=== PATIENT | male | born 1965 | race Two or more races ===

== ENCOUNTER 2018-06-25 18:48 | Inpatient (IN) | payer MEDICARE, OTHER ==
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
[2018-06-25 19:44] LABS: % BASOPHILS 0.3 % (0.0-2.0); % EOSINOPHILS 1.7 % (0.0-5.0); % MONOCYTES 7.3 % (2.0-10.0); % NEUTROPHILS 63.7 % (40.0-80.0); EOSINOPHILE ABSOLUTE 0.2 Th/cmm (0.1-0.4); HEMATOCRIT 48.3 % (41.0-60); LYMPHOCYTE ABSOLUTE 2.9 Th/cmm (1.5-3.0); MEAN CELL VOLUME 89.4 fl (80-99); MEAN CORPUSCULAR HEMOGLOBIN 29.6 pg (26.0-30.0); MEAN CORPUSCULAR HGB CONC 33.1 pg (28.0-36.0); MEAN PLATELET VOLUME 8.4 fl; MONOCYTE ABSOLUTE 0.8 Th/cmm (0.3-1.0); NEUTROPHILE ABSOLUTE 6.7 Th/cmm (1.8-8.0); PLATELET COUNT 205 Th/cmm (150-400); RED CELL DISTRIBUTION WIDTH 12.4 % (11.5-20.0); WHITE BLOOD COUNT 10.6 Th/cmm (4.8-10.8)
[2018-06-25 20:00] LABS: ALB/GLOB RATIO 1.6 (1.0-1.8); ALBUMIN 4.6 gm/dL (4.2-5.5); ALKALINE PHOSPHATASE 78 U/L (34-104); ANION GAP 11.8 (7.0-16.0); BILIRUBIN,TOTAL 0.3 mg/dL (0.3-1.0); BUN - UREA NITROGEN 11 mg/dL (7-25); CALCIUM SERUM 9.5 mg/dL (8.6-10.3); CARBON DIOXIDE 24.8 mEq/L (21.0-31.0); CHLORIDE 106 mEq/L (98-107); CREATININE - SERUM 0.7 mg/dL (0.7-1.3); GFR AFRICAN-AMERICAN > 60.0 ml/min (>90); GFR NON AFRICAN-AMERICAN > 60.0 ml/min; GLUCOSE 97 mg/dL (70-105); POTASSIUM SERUM 3.6 mEq/L (3.5-5.1); SGOT 14 U/L (13-39); SGPT/ALT 17 U/L (7-52); SODIUM SERUM 139 mEq/L (136-145); TOTAL PROTEIN,SERUM 7.4 gm/dL (6.0-8.3)
[2018-06-25 20:12] LABS: URINE SOURCE CLEAN C
[2018-06-25 20:17] LABS: URINE BILIRUBIN NEGATIVE (NEGATIVE); URINE BLOOD NEGATIVE (NEGATIVE); URINE GLUCOSE (UA) NEGATIVE (NEGATIVE); URINE KETONE NEGATIVE (NEGATIVE); URINE LEUKOCYTE ESTERASE TRACE (NEGATIVE); URINE MICROSCOPIC INDICATED? YES; URINE NITRATE NEGATIVE (NEGATIVE); URINE PROTEIN NEGATIVE (NEGATIVE); URINE UROBILINOGEN 0.2 E.U./dL (0.2 - 1.0)
[2018-06-25 20:24] LABS: AMPHETAMINE URINE NEGATIVE (NEGATIVE); BARBITURATES URINE NEGATIVE (NEGATIVE); BENZODIAZEPINES QUAL URINE NEGATIVE (NEGATIVE); CANNABINOID THC NEGATIVE (NEGATIVE); COCAINE METABOLITE QUAL URINE NEGATIVE (NEGATIVE); METHADONE URINE NEGATIVE (NEGATIVE); METHAMPHETAMINES QUAL URINE NEGATIVE (NEGATIVE); OPIATES (MORPHINE) QUAL. URINE NEGATIVE (NEGATIVE); PHENCYCLIDINE (PCP) URINE NEGATIVE (NEGATIVE); TRICYCLICS (TCA) QUAL. URINE POSITIVE (NEGATIVE)
[2018-06-25 20:25] LABS: URINE CLARITY CLEAR (CLEAR); URINE COLOR YELLOW
[2018-06-25 20:26] LABS: URINE BACTERIA FEW /hpf (NONE SEEN); URINE EPITHELIAL CELLS NONE SEEN /lpf (FEW); URINE RBC NONE SEEN /hpf (0-5); URINE WBC 0-2 /hpf (0-5)
[2018-06-25 21:41] VITALS: BP 110/64
[2018-06-25] MEDS ORDERED: Maalox 30 mL Cup PO PRN (21:54)
[2018-06-25] MEDS ORDERED: Magnesium Hydroxide (MOM) 30 mL UDC PO PRN (21:54)
[2018-06-25] MEDS ORDERED: Pneumococcal Vaccine 0.5 mL Vial IM ONE (23:06)
[2018-06-26] MEDS: Pantoprazole 40 mg EC Tab PO SCH (06:34)
[2018-06-26] MEDS: Multivitamin Tab PO SCH (08:52)
[2018-06-26] MEDS: Verapamil HCl SR 120 mg Tab PO SCH (08:54)
--- NOTE | 2018-06-26 10:01 | History and Physical ---
History of Present Illness - HPI Chief Complaint: Increased in agitation. HPI: Patient was send from SNF for evaluation due to increased in agitation. He was send to ER for eval and treatment. Vital Signs: Last Vital Signs Temp 97.6 F 06/26/18 06:17 Pulse 82 06/26/18 06:17 Resp 19 06/26/18 06:17 BP 94/64 06/26/18 06:17 Pulse Ox 99 06/26/18 06:17 Past Medical History Cardiovascular: Report: No Pertinent Hx DOCUMENT SPECIALIST: Report: Seizure GI: Report: No Pertinent Hx Psych: Report: Schizophrenia Musculoskeletal: Report: Weakness, Other (Left side hemiparesis) Rheumatologic: Report: No pertinent Hx Infectious Disease: Report: No Pertinent Hx Renal/: Report: No Pertinent Hx Endocrine: Report: No Pertinent Hx Dermatology: Report: No Pertinent Hx - Past Surgical History Past Surgical History: No pertinent Hx Social History Smoke: No Alcohol: None Drugs: None Lives: [facility] Domestic Violence: Negative - Medications Home Medications: Home Medication Medication Instructions Recorded Type Atorvastatin Calcium [Lipitor] 20 mg PO HS 06/25/18 History Levetiracetam [Keppra Xr] 500 mg PO BID 06/25/18 History OLANZapine [ZyPREXA] 5 mg PO QAM 06/25/18 History OLANZapine [ZyPREXA] 10 mg PO HS 06/25/18 History Oxybutynin Chloride [Ditropan*] 5 mg PO DAILY 06/25/18 History Pantoprazole [Protonix] 40 mg PO DAILY 06/25/18 History QUEtiapine Fumarate [SEROquel] 800 mg PO HS 06/25/18 History Topiramate [Topamax] 100 mg PO BID 06/25/18 History Verapamil HCl [Verapamil ER] 120 mg PO DAILY 06/25/18 History busPIRone [Buspar] 10 mg PO QAM 06/25/18 History busPIRone [Buspar] 10 mg PO QPM 06/25/18 History clonazePAM [klonoPIN] 1 mg PO TID 06/25/18 History - Allergies Allergies/Adverse Reactions: Allergies Allergy/AdvReac Type Severity Reaction Status Date / Time lamotrigine [From Lamictal] Allergy Verified 06/25/18 18:52 metformin Allergy Verified 06/25/18 18:53 phenytoin [From Dilantin] Allergy Verified 06/25/18 18:52 Review of Systems - Review of Systems Constitutional: Report: No Significant Eyes: Report: No Significant Respiratory: Report: No Significant Cardiovascular: Report: No Significant Gastrointestinal: Report: No Significant Genitourinary: Report: No Significant Musculoskeletal: Report: No Significant Skin: Report: No Significant Neurological: Report: Other (Increased in agitation) Physical Exam - Physical Exam HEENT: Report: Ears Nose Throat within normal limits Neck: Report: Within normal limits Cardiovascular Systems: Report: Regular, Rate and Rhythm Respiratory: Report: Breath Sounds are within normal limits Abdomen: Report: Non-tender to palpation Back: Report: Inspection of back is within normal limits. Extremities: Report: Other (Left side hemiparesis) Skin: Report: Color of skin is within normal limits Neuro/Psych: Report: Disoriented to name time or place - Lab Results All Lab Results last 24 hours: Laboratory Results - last 24 hr 06/25/18 06/25/18 06/25/18 19:36 19:36 19:45 WBC 10.6 RBC 5.40 Hgb 16.0 Hct 48.3 MCV 89.4 MCH 29.6 MCHC Differential 33.1 RDW 12.4 Plt Count 205 MPV 8.4 Neutrophils % 63.7 Lymphocytes % 27.0 Monocytes % 7.3 Eosinophils % 1.7 Basophils % 0.3 Sodium 139 Potassium 3.6 Chloride 106 Carbon Dioxide 24.8 Anion Gap 11.8 BUN 11 Creatinine 0.7 Est GFR ( Amer) > 60.0 Est GFR (Non-Af Amer) > 60.0 BUN/Creatinine Ratio 15.7 Glucose 97 Calcium 9.5 Total Bilirubin 0.3 AST 14 ALT 17 Alkaline Phosphatase 78 Total Protein 7.4 Albumin 4.6 Globulin 2.8 Albumin/Globulin Ratio 1.6 Urine Source CLEAN C Urine Color YELLOW Urine Clarity CLEAR Urine pH 7.0 Ur Specific [place] 1.010 Urine Protein NEGATIVE Urine Glucose (UA) NEGATIVE Urine Ketones NEGATIVE Urine Blood NEGATIVE Urine Nitrate NEGATIVE Urine Bilirubin NEGATIVE Urine Urobilinogen 0.2 Ur Leukocyte Esterase TRACE H Urine RBC NONE SEEN Urine WBC 0-2 Ur Epithelial Cells NONE SEEN Urine Bacteria FEW Urine Opiates Screen Urine Methadone Screen Ur Barbiturates Screen Ur Tricyclics Screen Ur Phencyclidine Scrn Amphetamines Screen U Methamphetamines Scrn U Benzodiazepines Scrn U Cocaine Metab Screen U Cannabinoids Screen Ethyl Alcohol < 10 06/25/18 19:45 WBC RBC Hgb Hct MCV MCH MCHC Differential RDW Plt Count MPV Neutrophils % Lymphocytes % Monocytes % Eosinophils % Basophils % Sodium Potassium Chloride Carbon Dioxide Anion Gap BUN Creatinine Est GFR ( Amer) Est GFR (Non-Af Amer) BUN/Creatinine Ratio Glucose Calcium Total Bilirubin AST ALT Alkaline Phosphatase Total Protein Albumin Globulin Albumin/Globulin Ratio Urine Source Urine Color Urine Clarity Urine pH Ur Specific [place] Urine Protein Urine Glucose (UA) Urine Ketones Urine Blood Urine Nitrate Urine Bilirubin Urine Urobilinogen Ur Leukocyte Esterase Urine RBC Urine WBC Ur Epithelial Cells Urine Bacteria Urine Opiates Screen NEGATIVE Urine Methadone Screen NEGATIVE Ur Barbiturates Screen NEGATIVE Ur Tricyclics Screen POSITIVE H Ur Phencyclidine Scrn NEGATIVE Amphetamines Screen NEGATIVE U Methamphetamines Scrn NEGATIVE U Benzodiazepines Scrn NEGATIVE U Cocaine Metab Screen NEGATIVE U Cannabinoids Screen NEGATIVE Ethyl Alcohol - Assessment Assessment: Patient is awake, alert, calm. Blood work is WNL. Dx: Increased in agitation, Schizophrenia, Seizure, left side hemiparesis, HTN. - Plan Plan: Patient is follow by psychiatry, continue with SNF meds. Will continue to monitor.
[2018-06-26] MEDS: Atorvastatin Calcium 10 MG TAB PO SCH (21:16)
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
[2018-06-27] MEDS: Pantoprazole 40 mg EC Tab PO SCH (06:50)
[2018-06-27] MEDS: Multivitamin Tab PO SCH (09:52)
[2018-06-27] MEDS: Verapamil HCl SR 120 mg Tab PO SCH (09:53)
--- NOTE | 2018-06-27 10:04 | General Progress Note ---
Subjective - Review of Systems Service Date: 06/27/18 Subjective: I want go back to my place. Objective - Results Result Diagrams: 06/25/18 19:36 06/25/18 19:36 Recent Labs: Laboratory Last Values WBC 10.6 Th/cmm (4.8-10.8) 06/25/18 19:36 RBC 5.40 Mil/cmm (4.30-5.70) 06/25/18 19:36 Hgb 16.0 gm/dL (12-16) 06/25/18 19:36 Hct 48.3 % (41.0-60) 06/25/18 19:36 MCV 89.4 fl (80-99) 06/25/18 19:36 MCH 29.6 pg (26.0-30.0) 06/25/18 19:36 MCHC Differential 33.1 pg (28.0-36.0) 06/25/18 19:36 RDW 12.4 % (11.5-20.0) 06/25/18 19:36 Plt Count 205 Th/cmm (150-400) 06/25/18 19:36 MPV 8.4 fl 06/25/18 19:36 Neutrophils % 63.7 % (40.0-80.0) 06/25/18 19:36 Lymphocytes % 27.0 % (20.0-50.0) 06/25/18 19:36 Monocytes % 7.3 % (2.0-10.0) 06/25/18 19:36 Eosinophils % 1.7 % (0.0-5.0) 06/25/18 19:36 Basophils % 0.3 % (0.0-2.0) 06/25/18 19:36 Sodium 139 mEq/L (136-145) 06/25/18 19:36 Potassium 3.6 mEq/L (3.5-5.1) 06/25/18 19:36 Chloride 106 mEq/L (98-107) 06/25/18 19:36 Carbon Dioxide 24.8 mEq/L (21.0-31.0) 06/25/18 19:36 Anion Gap 11.8 (7.0-16.0) 06/25/18 19:36 BUN 11 mg/dL (7-25) 06/25/18 19:36 Creatinine 0.7 mg/dL (0.7-1.3) 06/25/18 19:36 Est GFR ( Amer) > 60.0 ml/min (>90) 06/25/18 19:36 Est GFR (Non-Af Amer) > 60.0 ml/min 06/25/18 19:36 BUN/Creatinine Ratio 15.7 06/25/18 19:36 Glucose 97 mg/dL (70-105) 06/25/18 19:36 Calcium 9.5 mg/dL (8.6-10.3) 06/25/18 19:36 Total Bilirubin 0.3 mg/dL (0.3-1.0) 06/25/18 19:36 AST 14 U/L (13-39) 06/25/18 19:36 ALT 17 U/L (7-52) 06/25/18 19:36 Alkaline Phosphatase 78 U/L (34-104) 06/25/18 19:36 Total Protein 7.4 gm/dL (6.0-8.3) 06/25/18 19:36 Albumin 4.6 gm/dL (4.2-5.5) 06/25/18 19:36 Globulin 2.8 gm/dL 06/25/18 19:36 Albumin/Globulin Ratio 1.6 (1.0-1.8) 06/25/18 19:36 Urine Source CLEAN C 06/25/18 19:45 Urine Color YELLOW 06/25/18 19:45 Urine Clarity CLEAR (CLEAR) 06/25/18 19:45 Urine pH 7.0 (4.6 - 8.0) 06/25/18 19:45 Ur Specific [place] 1.010 (1.005-1.030) 06/25/18 19:45 Urine Protein NEGATIVE mg/dL (NEGATIVE) 06/25/18 19:45 Urine Glucose (UA) NEGATIVE mg/dL (NEGATIVE) 06/25/18 19:45 Urine Ketones NEGATIVE mg/dL (NEGATIVE) 06/25/18 19:45 Urine Blood NEGATIVE (NEGATIVE) 06/25/18 19:45 Urine Nitrate NEGATIVE (NEGATIVE) 06/25/18 19:45 Urine Bilirubin NEGATIVE (NEGATIVE) 06/25/18 19:45 Urine Urobilinogen 0.2 E.U./dL (0.2 - 1.0) 02/15/19 19:45 Ur Leukocyte Esterase TRACE (NEGATIVE) H 06/25/18 19:45 Urine RBC NONE SEEN /hpf (0-5) 06/25/18 19:45 Urine WBC 0-2 /hpf (0-5) 06/25/18 19:45 Ur Epithelial Cells NONE SEEN /lpf (FEW) 06/25/18 19:45 Urine Bacteria FEW /hpf (NONE SEEN) 06/25/18 19:45 Urine Opiates Screen NEGATIVE (NEGATIVE) 06/25/18 19:45 Urine Methadone Screen NEGATIVE (NEGATIVE) 06/25/18 19:45 Ur Barbiturates Screen NEGATIVE (NEGATIVE) 06/25/18 19:45 Ur Tricyclics Screen POSITIVE (NEGATIVE) H 06/25/18 19:45 Ur Phencyclidine Scrn NEGATIVE (NEGATIVE) 06/25/18 19:45 Amphetamines Screen NEGATIVE (NEGATIVE) 06/25/18 19:45 U Methamphetamines Scrn NEGATIVE (NEGATIVE) 06/25/18 19:45 U Benzodiazepines Scrn NEGATIVE (NEGATIVE) 06/25/18 19:45 U Cocaine Metab Screen NEGATIVE (NEGATIVE) 06/25/18 19:45 U Cannabinoids Screen NEGATIVE (NEGATIVE) 06/25/18 19:45 Ethyl Alcohol < 10 mg/dL (0-10) 06/25/18 19:36 - Physical Exam Vitals and I&O: Vital Signs Temp 97.9 F 06/27/18 06:33 Pulse 70 06/27/18 09:53 Resp 20 06/27/18 06:33 BP 114/78 06/27/18 09:53 Pulse Ox 96 06/27/18 06:33 Intake & Output 06/26/18 06/27/18 06/27/18 18:59 06:59 18:59 Intake Total 240 Balance 240 Intake: Oral 240 Other: # Voids 2 Active Medications: Current Medications Acetaminophen (Tylenol) 650 mg PO Q4HR PRN PRN Reason: Mild Pain / Temp above 100 Stop: 08/24/18 21:53 Last Admin: 06/26/18 17:43 Dose: 650 mg Al Hydrox/Mg Hydrox/Simethicone (Maalox) 30 ml PO Q4HR PRN PRN Reason: GI DISTRESS Stop: 08/24/18 21:53 Atorvastatin Calcium (Lipitor) 20 mg PO HS PITER Stop: 08/25/18 20:59 Last Admin: 06/26/18 21:16 Dose: 20 mg Buspirone HCl (Buspar) 10 mg PO QAM PITER; Protocol Stop: 08/25/18 08:59 Last Admin: 06/27/18 09:51 Dose: 10 mg Buspirone HCl (Buspar) 10 mg PO QPM PITER; Protocol Stop: 08/25/18 16:59 Last Admin: 06/26/18 17:43 Dose: 10 mg Clonazepam (Klonopin) 1 mg PO TID PITER; Protocol Stop: 08/25/18 08:59 Last Admin: 06/27/18 09:53 Dose: 1 mg Levetiracetam (Keppra) 500 mg PO BID PITER Stop: 08/25/18 08:59 Last Admin: 06/27/18 09:51 Dose: 500 mg Lorazepam (Ativan) 0.5 mg PO Q4HR PRN; Protocol PRN Reason: Anxiety Stop: 07/25/18 21:53 Last Admin: 06/26/18 14:46 Dose: 0.5 mg Magnesium Hydroxide (Milk Of Magnesia) 30 ml PO HS PRN PRN Reason: Constipation Multivitamins/Vitamin C (Theragran) 1 tab PO DAILY PITER Stop: 08/25/18 08:59 Last Admin: 06/27/18 09:52 Dose: 1 tab Olanzapine (Zyprexa) 5 mg PO QAM PITER; Protocol Stop: 08/25/18 08:59 Last Admin: 06/27/18 09:51 Dose: 5 mg Olanzapine (Zyprexa) 10 mg PO HS PITER; Protocol Stop: 08/25/18 20:59 Last Admin: 06/26/18 21:17 Dose: 10 mg Oxybutynin Chloride (Ditropan) 5 mg PO DAILY PITER Stop: 08/25/18 08:59 Last Admin: 06/27/18 09:51 Dose: 5 mg Pantoprazole Sodium (Protonix) 40 mg PO QDAC PITER Stop: 08/25/18 07:29 Last Admin: 06/27/18 06:50 Dose: 40 mg Quetiapine Fumarate (Seroquel) 800 mg PO HS PITER; Protocol Stop: 08/25/18 20:59 Last Admin: 06/26/18 21:18 Dose: 800 mg Topiramate (Topamax) 100 mg PO BID [facility] Stop: 08/25/18 08:59 Last Admin: 06/27/18 09:53 Dose: 100 mg Verapamil HCl (Calan Sr) 120 mg PO DAILY [facility] Stop: 08/25/18 08:59 Last Admin: 06/27/18 09:53 Dose: 120 mg Zolpidem Tartrate (Ambien) 5 mg PO HS PRN PRN Reason: Insomnia Stop: 08/24/18 21:53 General: Alert, No acute distress HEENT: Atraumatic Neck: Supple Cardiovascular: Regular rate Lungs: Clear to auscultation Abdomen: Bowel sounds, Soft Extremities: Other (Left hemiparesis) Neurological: Other (Non ambulatory) Skin: Other (Warm and dry) Psych/Mental Status: Other (Confused) Assessment/Plan - Assessment Assessment: Patient is awake, alert, calm. Blood work is WNL. Dx: Increased in agitation, Schizophrenia, Seizure, left side hemiparesis, HTN. - Plan Plan: Patient is follow by psychiatry, continue with SNF meds. Will continue to monitor.
--- NOTE | 2018-06-27 14:03 | Progress Notes ---
DATE: 06/27/2018 SUBJECTIVE: Staff was spoken to. The patient is interviewed. Mood is noted to be irritable. Affect is constricted. Insight and judgment are noted to be still impaired. The patient is pacing most of the time on the unit. The patient's coping skills are noted to be extremely poor. No side effects to the medications are noted. ASSESSMENT: The patient is still impulsive. PLAN: To continue the patient with the current medications and followup. JOB# [id number]
[2018-06-27] MEDS: Atorvastatin Calcium 10 MG TAB PO SCH (22:54)
[2018-06-28] MEDS: Pantoprazole 40 mg EC Tab PO SCH (06:48)
[2018-06-28] MEDS: Multivitamin Tab PO SCH (09:13)
[2018-06-28] MEDS: Verapamil HCl SR 120 mg Tab PO SCH (09:15)
--- NOTE | 2018-06-28 20:50 | Consultation ---
DATE OF CONSULTATION: 06/28/2018 REFERRING PHYSICIAN: Alonzo Phipps M.D. TYPE OF CONSULTATION: Psychology. HISTORY OF PRESENT ILLNESS: The patient is a 52-year-old male. The following is by review of the medical record and by the patient's self report. The patient is being admitted due to increased agitation and anger outbursts. The staff at the patient's facility report, the patient had been banging on doors and escobedo and has become a risk for self-harm, with respect to his aggressive behavior. Upon interview, the patient is not making much sense and is easily agitated. The patient denied any suicidal ideation, plan, or intention. The patient did not answer the question about experiencing homicidal ideation, plan, or intention. PAST MEDICAL HISTORY: Please see history and physical. PAST PSYCHIATRIC HISTORY: According to the record, the patient has a history of dementia as well as psychosis. The patient is under the care of a psychiatrist at his placement. SUBSTANCE ABUSE HISTORY: The patient denied any history of alcohol, tobacco, or illicit drug use. PSYCHOSOCIAL HISTORY: The patient is a resident of a [place] [facility] facility. The patient did not answer questions about occupational or educational history or gnosticist affiliation. The patient did not answer questions about history, physical, or sexual abuse or current legal problems. The patient did not answer questions about family relationships or other family members involved in his care. MENTAL STATUS EXAMINATION: The patient appears to be his stated age. The patient's attitude is guarded. Eye contact is poor. Speech is loud and repetitive. Mood is anxious and angry. Affect is mood congruent. Thought process seems to be disorganized. The patient was not making much sense and was having difficulty responding to cognitive redirection. The patient denied any auditory or visual hallucinations; however, the patient seems to be responding to internal stimuli. The patient denied having any suicidal ideation, plan or intention. The patient did not answer questions about homicidal ideation. The patient's behavior is easily agitated as well as restless and unpredictable. Impulse control is inadequate. Concentration is poor. The patient did not participate in the memory assessment. Sensorium is alert and oriented to self and place only. The patient did not participate in the interpretation of proverbs. Insight is impaired. Judgment is impaired. DIAGNOSTIC IMPRESSION: AXIS I: 1. Dementia, not otherwise specified with behavioral disturbance. 2. Provisional diagnosis of major depressive disorder with psychotic symptoms. AXIS II Deferred. AXIS III: Please see history and physical. PLAN: The patient has been seen by Dr. Phipps for psychiatric evaluation and for the management of the patient's psychotropic medications. We will provide individual supportive psychotherapy, as well as group therapy. We will include reality orientation, differentiation, and integration. We will provide limit setting and de-escalation. We will provide anger management. We will provide motivational enhancement for the patient to become compliant and stay compliant with all aspects of his care and treatment. We will encourage the patient to be able to demonstrate emotional and self-regulation prior to discharge. We will encourage the patient to verbalize his concerns versus acting out. We will encourage the patient on a daily basis to contract verbally for safety, including no self-harm and no harm to others. Thank you, Dr. Phipps for this consult and the opportunity to participate in this patient's care. JOB# [id number] EMMA
[2018-06-28] MEDS: Atorvastatin Calcium 10 MG TAB PO SCH (21:06)
--- NOTE | 2018-06-29 00:06 | Progress Notes ---
DATE: 06/28/2018 SUBJECTIVE: Staff was spoken to. The patient is interviewed. Mood is noted to be irritable. The patient is pacing most of the time on the unit. Insight and judgment at this time are noted to be still impaired. Impulse control is noted to be poor. Coping skills are also noted to be very poor. The patient has been not presenting with any major behavioral problems, but the patient tends to be very unpredictable and violent at times. No side effects to the medications are noted. ASSESSMENT: The patient is still impulsive. PLAN: To continue the patient with the supportive therapy. I encouraged the patient to verbalize the concerns rather than to act out. JOB# [id number]
[2018-06-29] MEDS: Pantoprazole 40 mg EC Tab PO SCH (06:32)
--- NOTE | 2018-06-29 08:48 | General Progress Note ---
Subjective - Review of Systems Service Date: 06/29/18 Subjective: I want go back to my place. Objective - Results Result Diagrams: 06/25/18 19:36 06/25/18 19:36 Recent Labs: Laboratory Last Values WBC 10.6 Th/cmm (4.8-10.8) 06/25/18 19:36 RBC 5.40 Mil/cmm (4.30-5.70) 06/25/18 19:36 Hgb 16.0 gm/dL (12-16) 06/25/18 19:36 Hct 48.3 % (41.0-60) 06/25/18 19:36 MCV 89.4 fl (80-99) 06/25/18 19:36 MCH 29.6 pg (26.0-30.0) 06/25/18 19:36 MCHC Differential 33.1 pg (28.0-36.0) 06/25/18 19:36 RDW 12.4 % (11.5-20.0) 06/25/18 19:36 Plt Count 205 Th/cmm (150-400) 06/25/18 19:36 MPV 8.4 fl 06/25/18 19:36 Neutrophils % 63.7 % (40.0-80.0) 06/25/18 19:36 Lymphocytes % 27.0 % (20.0-50.0) 06/25/18 19:36 Monocytes % 7.3 % (2.0-10.0) 06/25/18 19:36 Eosinophils % 1.7 % (0.0-5.0) 06/25/18 19:36 Basophils % 0.3 % (0.0-2.0) 06/25/18 19:36 Sodium 139 mEq/L (136-145) 06/25/18 19:36 Potassium 3.6 mEq/L (3.5-5.1) 06/25/18 19:36 Chloride 106 mEq/L (98-107) 06/25/18 19:36 Carbon Dioxide 24.8 mEq/L (21.0-31.0) 06/25/18 19:36 Anion Gap 11.8 (7.0-16.0) 06/25/18 19:36 BUN 11 mg/dL (7-25) 06/25/18 19:36 Creatinine 0.7 mg/dL (0.7-1.3) 06/25/18 19:36 Est GFR ( Amer) > 60.0 ml/min (>90) 06/25/18 19:36 Est GFR (Non-Af Amer) > 60.0 ml/min 06/25/18 19:36 BUN/Creatinine Ratio 15.7 06/25/18 19:36 Glucose 97 mg/dL (70-105) 06/25/18 19:36 Calcium 9.5 mg/dL (8.6-10.3) 06/25/18 19:36 Total Bilirubin 0.3 mg/dL (0.3-1.0) 06/25/18 19:36 AST 14 U/L (13-39) 06/25/18 19:36 ALT 17 U/L (7-52) 06/25/18 19:36 Alkaline Phosphatase 78 U/L (34-104) 06/25/18 19:36 Total Protein 7.4 gm/dL (6.0-8.3) 06/25/18 19:36 Albumin 4.6 gm/dL (4.2-5.5) 06/25/18 19:36 Globulin 2.8 gm/dL 06/25/18 19:36 Albumin/Globulin Ratio 1.6 (1.0-1.8) 06/25/18 19:36 Urine Source CLEAN C 06/25/18 19:45 Urine Color YELLOW 06/25/18 19:45 Urine Clarity CLEAR (CLEAR) 06/25/18 19:45 Urine pH 7.0 (4.6 - 8.0) 06/25/18 19:45 Ur Specific [place] 1.010 (1.005-1.030) 06/25/18 19:45 Urine Protein NEGATIVE mg/dL (NEGATIVE) 06/25/18 19:45 Urine Glucose (UA) NEGATIVE mg/dL (NEGATIVE) 06/25/18 19:45 Urine Ketones NEGATIVE mg/dL (NEGATIVE) 06/25/18 19:45 Urine Blood NEGATIVE (NEGATIVE) 06/25/18 19:45 Urine Nitrate NEGATIVE (NEGATIVE) 06/25/18 19:45 Urine Bilirubin NEGATIVE (NEGATIVE) 06/25/18 19:45 Urine Urobilinogen 0.2 E.U./dL (0.2 - 1.0) 02/15/19 19:45 Ur Leukocyte Esterase TRACE (NEGATIVE) H 06/25/18 19:45 Urine RBC NONE SEEN /hpf (0-5) 06/25/18 19:45 Urine WBC 0-2 /hpf (0-5) 06/25/18 19:45 Ur Epithelial Cells NONE SEEN /lpf (FEW) 06/25/18 19:45 Urine Bacteria FEW /hpf (NONE SEEN) 06/25/18 19:45 Urine Opiates Screen NEGATIVE (NEGATIVE) 06/25/18 19:45 Urine Methadone Screen NEGATIVE (NEGATIVE) 06/25/18 19:45 Ur Barbiturates Screen NEGATIVE (NEGATIVE) 06/25/18 19:45 Ur Tricyclics Screen POSITIVE (NEGATIVE) H 06/25/18 19:45 Ur Phencyclidine Scrn NEGATIVE (NEGATIVE) 06/25/18 19:45 Amphetamines Screen NEGATIVE (NEGATIVE) 06/25/18 19:45 U Methamphetamines Scrn NEGATIVE (NEGATIVE) 06/25/18 19:45 U Benzodiazepines Scrn NEGATIVE (NEGATIVE) 06/25/18 19:45 U Cocaine Metab Screen NEGATIVE (NEGATIVE) 06/25/18 19:45 U Cannabinoids Screen NEGATIVE (NEGATIVE) 06/25/18 19:45 Ethyl Alcohol < 10 mg/dL (0-10) 06/25/18 19:36 - Physical Exam Vitals and I&O: Vital Signs Temp 97.9 F 06/29/18 06:23 Pulse 92 06/29/18 06:23 Resp 19 06/29/18 06:23 BP 134/83 06/29/18 06:23 Pulse Ox 97 06/29/18 06:23 Intake & Output 06/28/18 06/29/18 06/29/18 18:59 06:59 18:59 Intake Total 1400 480 Balance 1400 480 Intake: Oral 1400 480 Other: # Voids 4 1 # Bowel Movements 0 Active Medications: Current Medications Acetaminophen (Tylenol) 650 mg PO Q4HR PRN PRN Reason: Mild Pain / Temp above 100 Stop: 08/24/18 21:53 Last Admin: 06/28/18 05:49 Dose: 650 mg Al Hydrox/Mg Hydrox/Simethicone (Maalox) 30 ml PO Q4HR PRN PRN Reason: GI DISTRESS Stop: 08/24/18 21:53 Atorvastatin Calcium (Lipitor) 20 mg PO HS PITER Stop: 08/25/18 20:59 Last Admin: 06/28/18 21:06 Dose: 20 mg Buspirone HCl (Buspar) 10 mg PO QAM PITER; Protocol Stop: 08/25/18 08:59 Last Admin: 06/28/18 09:12 Dose: 10 mg Buspirone HCl (Buspar) 10 mg PO QPM PITER; Protocol Stop: 08/25/18 16:59 Last Admin: 06/28/18 16:13 Dose: 10 mg Clonazepam (Klonopin) 1 mg PO BID PITER; Protocol Stop: 08/26/18 16:59 Last Admin: 06/28/18 16:14 Dose: 1 mg Levetiracetam (Keppra) 500 mg PO BID PITER Stop: 08/25/18 08:59 Last Admin: 06/28/18 16:14 Dose: 500 mg Lorazepam (Ativan) 0.5 mg PO Q4HR PRN; Protocol PRN Reason: Anxiety Stop: 07/25/18 21:53 Last Admin: 06/27/18 17:28 Dose: 0.5 mg Magnesium Hydroxide (Milk Of Magnesia) 30 ml PO HS PRN PRN Reason: Constipation Multivitamins/Vitamin C (Theragran) 1 tab PO DAILY [facility] Stop: 08/25/18 08:59 Last Admin: 06/28/18 09:13 Dose: 1 tab Olanzapine (Zyprexa) 5 mg PO QAM [facility]; Protocol Stop: 08/25/18 08:59 Last Admin: 06/28/18 09:13 Dose: 5 mg Olanzapine (Zyprexa) 10 mg PO HS PITER; Protocol Stop: 08/25/18 20:59 Last Admin: 06/28/18 21:06 Dose: 10 mg Oxybutynin Chloride (Ditropan) 5 mg PO DAILY [facility] Stop: 08/25/18 08:59 Last Admin: 06/28/18 09:13 Dose: 5 mg Pantoprazole Sodium (Protonix) 40 mg PO QDAC [facility] Stop: 08/25/18 07:29 Last Admin: 06/29/18 06:32 Dose: 40 mg Quetiapine Fumarate (Seroquel) 800 mg PO HS PITER; Protocol Stop: 08/25/18 20:59 Last Admin: 06/28/18 21:06 Dose: 800 mg Topiramate (Topamax) 100 mg PO BID [facility] Stop: 08/25/18 08:59 Last Admin: 06/28/18 16:14 Dose: 100 mg Verapamil HCl (Calan Sr) 120 mg PO DAILY [facility] Stop: 08/25/18 08:59 Last Admin: 06/28/18 09:15 Dose: 120 mg Zolpidem Tartrate (Ambien) 5 mg PO HS PRN PRN Reason: Insomnia Stop: 08/24/18 21:53 General: Alert, No acute distress HEENT: Atraumatic Neck: Supple Cardiovascular: Regular rate Lungs: Clear to auscultation Abdomen: Bowel sounds, Soft Extremities: Other (Left hemiparesis) Neurological: Other (Non ambulatory) Skin: Other (Warm and dry) Psych/Mental Status: Other (Confused) Assessment/Plan - Assessment Assessment: Patient is awake, alert, calm. Blood work is WNL. Dx: Increased in agitation, Schizophrenia, Seizure, left side hemiparesis, HTN. - Plan Plan: Patient is follow by psychiatry, continue with SNF meds. Will continue to monitor.
[2018-06-29] MEDS: Multivitamin Tab PO SCH (08:55)
[2018-06-29] MEDS: Verapamil HCl SR 120 mg Tab PO SCH (08:56)
[2018-06-29] MEDS: Atorvastatin Calcium 10 MG TAB PO SCH (20:37)
--- NOTE | 2018-06-30 04:50 | Progress Notes ---
DATE: 06/29/2018 SUBJECTIVE: Staff was spoken to. The patient is interviewed. Mood is noted to be irritable. Affect is constricted. The patient is pacing most of the time on the unit. Insight and judgment at this time are noted to be impaired. Impulse control is noted to be limited. Coping skills are also to be limited. The patient is not able to contract for safety. No side effects to the medications are noted. The patient is noted to be very impulsive and unpredictable and staff are closely monitor the patient for the aggressive behavior. ASSESSMENT: The patient is still impulsive and psychotic. PLAN: To closely monitor the patient. I encouraged the patient to verbalize the concerns rather than to act out. The patient is not ready to be discharged to a lower level of care in view of his impulsive behavior. The patient is also being closely monitored for any episodes of seizures. The patient is currently buspirone 10 mg twice a day and the patient is also on clonazepam. The patient is getting olanzapine 5 mg in the morning and 10 mg at bedtime and is also on 800 mg at bedtime of the Seroquel even with all the medications the patient's behavior is a major concern. Plan to closely monitor the patient and encouraged the patient to verbalize the concerns rather than to act out. PSYCHIATRIC# [id number]
[2018-06-30] MEDS: Pantoprazole 40 mg EC Tab PO SCH (06:36)
--- NOTE | 2018-06-30 08:43 | General Progress Note ---
Subjective - Review of Systems Service Date: 06/30/18 Subjective: I want go back to my place. Objective - Results Result Diagrams: 06/25/18 19:36 06/25/18 19:36 Recent Labs: Laboratory Last Values WBC 10.6 Th/cmm (4.8-10.8) 06/25/18 19:36 RBC 5.40 Mil/cmm (4.30-5.70) 06/25/18 19:36 Hgb 16.0 gm/dL (12-16) 06/25/18 19:36 Hct 48.3 % (41.0-60) 06/25/18 19:36 MCV 89.4 fl (80-99) 06/25/18 19:36 MCH 29.6 pg (26.0-30.0) 06/25/18 19:36 MCHC Differential 33.1 pg (28.0-36.0) 06/25/18 19:36 RDW 12.4 % (11.5-20.0) 06/25/18 19:36 Plt Count 205 Th/cmm (150-400) 06/25/18 19:36 MPV 8.4 fl 06/25/18 19:36 Neutrophils % 63.7 % (40.0-80.0) 06/25/18 19:36 Lymphocytes % 27.0 % (20.0-50.0) 06/25/18 19:36 Monocytes % 7.3 % (2.0-10.0) 06/25/18 19:36 Eosinophils % 1.7 % (0.0-5.0) 06/25/18 19:36 Basophils % 0.3 % (0.0-2.0) 06/25/18 19:36 Sodium 139 mEq/L (136-145) 06/25/18 19:36 Potassium 3.6 mEq/L (3.5-5.1) 06/25/18 19:36 Chloride 106 mEq/L (98-107) 06/25/18 19:36 Carbon Dioxide 24.8 mEq/L (21.0-31.0) 06/25/18 19:36 Anion Gap 11.8 (7.0-16.0) 06/25/18 19:36 BUN 11 mg/dL (7-25) 06/25/18 19:36 Creatinine 0.7 mg/dL (0.7-1.3) 06/25/18 19:36 Est GFR ( Amer) > 60.0 ml/min (>90) 06/25/18 19:36 Est GFR (Non-Af Amer) > 60.0 ml/min 06/25/18 19:36 BUN/Creatinine Ratio 15.7 06/25/18 19:36 Glucose 97 mg/dL (70-105) 06/25/18 19:36 Calcium 9.5 mg/dL (8.6-10.3) 06/25/18 19:36 Total Bilirubin 0.3 mg/dL (0.3-1.0) 06/25/18 19:36 AST 14 U/L (13-39) 06/25/18 19:36 ALT 17 U/L (7-52) 06/25/18 19:36 Alkaline Phosphatase 78 U/L (34-104) 06/25/18 19:36 Total Protein 7.4 gm/dL (6.0-8.3) 06/25/18 19:36 Albumin 4.6 gm/dL (4.2-5.5) 06/25/18 19:36 Globulin 2.8 gm/dL 06/25/18 19:36 Albumin/Globulin Ratio 1.6 (1.0-1.8) 06/25/18 19:36 Urine Source CLEAN C 06/25/18 19:45 Urine Color YELLOW 06/25/18 19:45 Urine Clarity CLEAR (CLEAR) 06/25/18 19:45 Urine pH 7.0 (4.6 - 8.0) 06/25/18 19:45 Ur Specific [place] 1.010 (1.005-1.030) 06/25/18 19:45 Urine Protein NEGATIVE mg/dL (NEGATIVE) 06/25/18 19:45 Urine Glucose (UA) NEGATIVE mg/dL (NEGATIVE) 06/25/18 19:45 Urine Ketones NEGATIVE mg/dL (NEGATIVE) 06/25/18 19:45 Urine Blood NEGATIVE (NEGATIVE) 06/25/18 19:45 Urine Nitrate NEGATIVE (NEGATIVE) 06/25/18 19:45 Urine Bilirubin NEGATIVE (NEGATIVE) 06/25/18 19:45 Urine Urobilinogen 0.2 E.U./dL (0.2 - 1.0) 02/15/19 19:45 Ur Leukocyte Esterase TRACE (NEGATIVE) H 06/25/18 19:45 Urine RBC NONE SEEN /hpf (0-5) 06/25/18 19:45 Urine WBC 0-2 /hpf (0-5) 06/25/18 19:45 Ur Epithelial Cells NONE SEEN /lpf (FEW) 06/25/18 19:45 Urine Bacteria FEW /hpf (NONE SEEN) 06/25/18 19:45 Urine Opiates Screen NEGATIVE (NEGATIVE) 06/25/18 19:45 Urine Methadone Screen NEGATIVE (NEGATIVE) 06/25/18 19:45 Ur Barbiturates Screen NEGATIVE (NEGATIVE) 06/25/18 19:45 Ur Tricyclics Screen POSITIVE (NEGATIVE) H 06/25/18 19:45 Ur Phencyclidine Scrn NEGATIVE (NEGATIVE) 06/25/18 19:45 Amphetamines Screen NEGATIVE (NEGATIVE) 06/25/18 19:45 U Methamphetamines Scrn NEGATIVE (NEGATIVE) 06/25/18 19:45 U Benzodiazepines Scrn NEGATIVE (NEGATIVE) 06/25/18 19:45 U Cocaine Metab Screen NEGATIVE (NEGATIVE) 06/25/18 19:45 U Cannabinoids Screen NEGATIVE (NEGATIVE) 06/25/18 19:45 Ethyl Alcohol < 10 mg/dL (0-10) 06/25/18 19:36 - Physical Exam Vitals and I&O: Vital Signs Temp 97.6 F 06/30/18 06:27 Pulse 75 06/30/18 06:27 Resp 20 06/30/18 06:27 BP 127/59 06/30/18 06:27 Pulse Ox 96 06/30/18 06:27 Intake & Output 06/29/18 06/30/18 06/30/18 18:59 06:59 18:59 Intake Total 1400 120 Balance 1400 120 Intake: Oral 1400 120 Other: # Voids 4 1 # Bowel Movements 1 0 Active Medications: Current Medications Acetaminophen (Tylenol) 650 mg PO Q4HR PRN PRN Reason: Mild Pain / Temp above 100 Stop: 08/24/18 21:53 Last Admin: 06/28/18 05:49 Dose: 650 mg Al Hydrox/Mg Hydrox/Simethicone (Maalox) 30 ml PO Q4HR PRN PRN Reason: GI DISTRESS Stop: 08/24/18 21:53 Atorvastatin Calcium (Lipitor) 20 mg PO HS PITER Stop: 08/25/18 20:59 Last Admin: 06/29/18 20:37 Dose: 20 mg Buspirone HCl (Buspar) 10 mg PO QAM PITER; Protocol Stop: 08/25/18 08:59 Last Admin: 06/29/18 08:55 Dose: 10 mg Buspirone HCl (Buspar) 10 mg PO QPM PITER; Protocol Stop: 08/25/18 16:59 Last Admin: 06/29/18 16:33 Dose: 10 mg Clonazepam (Klonopin) 1 mg PO BID PITER; Protocol Stop: 08/26/18 16:59 Last Admin: 06/29/18 16:32 Dose: 1 mg Levetiracetam (Keppra) 500 mg PO BID [facility] Stop: 08/25/18 08:59 Last Admin: 06/29/18 16:32 Dose: 500 mg Lorazepam (Ativan) 0.5 mg PO Q4HR PRN; Protocol PRN Reason: Anxiety Stop: 07/25/18 21:53 Last Admin: 06/27/18 17:28 Dose: 0.5 mg Magnesium Hydroxide (Milk Of Magnesia) 30 ml PO HS PRN PRN Reason: Constipation Multivitamins/Vitamin C (Theragran) 1 tab PO DAILY [facility] Stop: 08/25/18 08:59 Last Admin: 06/29/18 08:55 Dose: 1 tab Olanzapine (Zyprexa) 5 mg PO QAM [facility]ITER; Protocol Stop: 08/25/18 08:59 Last Admin: 06/29/18 08:55 Dose: 5 mg Olanzapine (Zyprexa) 10 mg PO HS PITER; Protocol Stop: 08/25/18 20:59 Last Admin: 06/29/18 20:37 Dose: 10 mg Oxybutynin Chloride (Ditropan) 5 mg PO DAILY [facility] Stop: 08/25/18 08:59 Last Admin: 06/29/18 08:55 Dose: 5 mg Pantoprazole Sodium (Protonix) 40 mg PO QDAC [facility] Stop: 08/25/18 07:29 Last Admin: 06/30/18 06:36 Dose: 40 mg Quetiapine Fumarate (Seroquel) 800 mg PO HS PITER; Protocol Stop: 08/25/18 20:59 Last Admin: 06/29/18 20:37 Dose: 800 mg Topiramate (Topamax) 100 mg PO BID P[facility] Stop: 08/25/18 08:59 Last Admin: 06/29/18 16:32 Dose: 100 mg Verapamil HCl (Calan Sr) 120 mg PO DAILY [facility] Stop: 08/25/18 08:59 Last Admin: 06/29/18 08:56 Dose: 120 mg Zolpidem Tartrate (Ambien) 5 mg PO HS PRN PRN Reason: Insomnia Stop: 08/24/18 21:53 General: Alert, No acute distress HEENT: Atraumatic Neck: Supple Cardiovascular: Regular rate Lungs: Clear to auscultation Abdomen: Bowel sounds, Soft Extremities: Other (Left hemiparesis) Neurological: Other (Non ambulatory) Skin: Other (Warm and dry) Psych/Mental Status: Other (Confused) Assessment/Plan - Assessment Assessment: Patient is awake, alert, calm. Blood work is WNL. Dx: Increased in agitation, Schizophrenia, Seizure, left side hemiparesis, HTN. - Plan Plan: Patient is follow by psychiatry, continue with SNF meds. Will continue to monitor. Nutritional Asmnt/Malnutr-PDOC - Dietary Evaluation Malnutrition Findings (Please click <Entered> for more info): Nutritional Asmnt/Malnutrition Start: 06/26/18 10: 26 Text: Status: Complete Freq: Protocol: Document 06/29/18 18:29 LCHENG (Rec: 06/29/18 18:38 [email or web address]) Nutritional Asmnt/Malnutrition Patient General Information Nutritional Screening Moderate Risk Diagnosis psychosis Pertinent Medical Hx/Surgical Hx CVA/TIA, dyslipidemia, encephalopathy Subjective Information Pt seen in other pt room, confused, stated he is hungry, likes pancake. Per EMR, PO intake 50-75% Current Diet Order/ Nutrition Support regular Pertinent Medications lipitor, theragran, protonix, seroquel Pertinent Labs 06/25 reviewed Nutritional Hx/Data Height 1.78 m Height (Calculated Centimeters) 177.8 Current Weight (lbs) 92.986 kg Weight (Calculated Kilograms) 93.0 Weight (Calculated Grams) 68794.4 [place] Body Weight 166 Body Mass Index (BMI) 29.4 Weight Status Overweight GI Symptoms GI Symptoms None Last BM 06/27 Difficult in: None Skin Integrity/Comment: intact Current %PO Good (75-100%) Estimated Nutritional Goals BEE in Kcals: Using Current wt Calories/Kcals/Kg 20-25 Kcals Calculated 3770-2714 Protein: Using Current wt Protein g/k.8 Protein Calculated 74 Fluid: ml 1860-2325ml (1ml/kcal) Nutritional Problem No current Nutrition Prob Problem N/A Malnutrition Alert Is there a minimum of two criteria No selected? Query Text:Check all the applicable criteria. A minimum of two criteria are recommended for diagnosis of either severe or non-severe malnutrition. Malnutrition Related to Morbid Obesity Malnutrition related to morbid obesity No Intervention/Recommendation Comments 1. Continue with regular diet as ordered. 2. Monitor PO intake, wt, labs and skin integrity 3. F/U as low risk in 7 days Expected Outcomes/Goals Expected Outcomes/Goals 1. PO intake to meet at least 75% of nutritional needs. 2. Wt stability, skin to remain intact, labs to approach WNL.
[2018-06-30] MEDS: Multivitamin Tab PO SCH (09:12)
[2018-06-30] MEDS: Verapamil HCl SR 120 mg Tab PO SCH (09:14)
--- NOTE | 2018-06-30 20:16 | Progress Notes ---
DATE: 06/30/2018 SUBJECTIVE: Staff was spoken to. The patient is interviewed. Mood is noted to be irritable. Affect is constricted. Insight and judgment at this time are noted to be still impaired. Impulse control is poor. The patient is pacing on the unit. The patient needs to be closely monitored and redirected. ASSESSMENT: The patient is still impulsive and unpredictable. PLAN: To continue the patient with the current medications and follow. JOB# [id number]
[2018-06-30] MEDS: Atorvastatin Calcium 10 MG TAB PO SCH (20:41)
--- NOTE | 2018-06-30 21:47 | Progress Notes ---
DATE: 06/30/2018 PSYCHOLOGY PROGRESS NOTE SUBJECTIVE: The patient is seen and is interviewed. Case is discussed with the staff. The patient presents as irritable and guarded. The patient has been pacing most of the time on the unit according to the staff. Impulse control is limited with poor redirectability. The patient was not making much sense in responding to the clinical questions. We provided cognitive refocusing. The patient continues to have intermittent aggressive behavior. OBJECTIVE: Mood is irritable. Affect is constricted. Thought process shows to be confused, paranoid ideation is present. The patient denied any suicidal ideation, plan or intention. The patient denied any hallucinations. The patient's behavior has been intermittently resistant to care with poor impulse control. ASSESSMENT AND PLAN: The patient continues to be impulsive and psychotic. We provided supportive therapy, which included remotivation for the patient to become compliant and stay compliant with all aspects of his care and treatment. We provided stress management and de-escalation to reduce the patient's impulsive behavior and to increase his frustration tolerance. We provided coping strategies for chronic severe mental illness. We encouraged the patient to demonstrate emotional and self-regulation and to verbalize his concerns versus acting out. We will follow up in 2-3 days to continue the present treatment. JOB# [id number] EMMA
[2018-07-01] MEDS: Pantoprazole 40 mg EC Tab PO SCH (06:32)
[2018-07-01] MEDS: Multivitamin Tab PO SCH (08:42)
--- NOTE | 2018-07-01 08:43 | General Progress Note ---
Subjective - Review of Systems Service Date: 07/01/18 Subjective: I want go back to my place. Objective - Results Result Diagrams: 06/25/18 19:36 06/25/18 19:36 Recent Labs: Laboratory Last Values WBC 10.6 Th/cmm (4.8-10.8) 06/25/18 19:36 RBC 5.40 Mil/cmm (4.30-5.70) 06/25/18 19:36 Hgb 16.0 gm/dL (12-16) 06/25/18 19:36 Hct 48.3 % (41.0-60) 06/25/18 19:36 MCV 89.4 fl (80-99) 06/25/18 19:36 MCH 29.6 pg (26.0-30.0) 06/25/18 19:36 MCHC Differential 33.1 pg (28.0-36.0) 06/25/18 19:36 RDW 12.4 % (11.5-20.0) 06/25/18 19:36 Plt Count 205 Th/cmm (150-400) 06/25/18 19:36 MPV 8.4 fl 06/25/18 19:36 Neutrophils % 63.7 % (40.0-80.0) 06/25/18 19:36 Lymphocytes % 27.0 % (20.0-50.0) 06/25/18 19:36 Monocytes % 7.3 % (2.0-10.0) 06/25/18 19:36 Eosinophils % 1.7 % (0.0-5.0) 06/25/18 19:36 Basophils % 0.3 % (0.0-2.0) 06/25/18 19:36 Sodium 139 mEq/L (136-145) 06/25/18 19:36 Potassium 3.6 mEq/L (3.5-5.1) 06/25/18 19:36 Chloride 106 mEq/L (98-107) 06/25/18 19:36 Carbon Dioxide 24.8 mEq/L (21.0-31.0) 06/25/18 19:36 Anion Gap 11.8 (7.0-16.0) 06/25/18 19:36 BUN 11 mg/dL (7-25) 06/25/18 19:36 Creatinine 0.7 mg/dL (0.7-1.3) 06/25/18 19:36 Est GFR ( Amer) > 60.0 ml/min (>90) 06/25/18 19:36 Est GFR (Non-Af Amer) > 60.0 ml/min 06/25/18 19:36 BUN/Creatinine Ratio 15.7 06/25/18 19:36 Glucose 97 mg/dL (70-105) 06/25/18 19:36 Calcium 9.5 mg/dL (8.6-10.3) 06/25/18 19:36 Total Bilirubin 0.3 mg/dL (0.3-1.0) 06/25/18 19:36 AST 14 U/L (13-39) 06/25/18 19:36 ALT 17 U/L (7-52) 06/25/18 19:36 Alkaline Phosphatase 78 U/L (34-104) 06/25/18 19:36 Total Protein 7.4 gm/dL (6.0-8.3) 06/25/18 19:36 Albumin 4.6 gm/dL (4.2-5.5) 06/25/18 19:36 Globulin 2.8 gm/dL 06/25/18 19:36 Albumin/Globulin Ratio 1.6 (1.0-1.8) 06/25/18 19:36 Urine Source CLEAN C 06/25/18 19:45 Urine Color YELLOW 06/25/18 19:45 Urine Clarity CLEAR (CLEAR) 06/25/18 19:45 Urine pH 7.0 (4.6 - 8.0) 06/25/18 19:45 Ur Specific [place] 1.010 (1.005-1.030) 06/25/18 19:45 Urine Protein NEGATIVE mg/dL (NEGATIVE) 06/25/18 19:45 Urine Glucose (UA) NEGATIVE mg/dL (NEGATIVE) 06/25/18 19:45 Urine Ketones NEGATIVE mg/dL (NEGATIVE) 06/25/18 19:45 Urine Blood NEGATIVE (NEGATIVE) 06/25/18 19:45 Urine Nitrate NEGATIVE (NEGATIVE) 06/25/18 19:45 Urine Bilirubin NEGATIVE (NEGATIVE) 06/25/18 19:45 Urine Urobilinogen 0.2 E.U./dL (0.2 - 1.0) 02/15/19 19:45 Ur Leukocyte Esterase TRACE (NEGATIVE) H 06/25/18 19:45 Urine RBC NONE SEEN /hpf (0-5) 06/25/18 19:45 Urine WBC 0-2 /hpf (0-5) 06/25/18 19:45 Ur Epithelial Cells NONE SEEN /lpf (FEW) 06/25/18 19:45 Urine Bacteria FEW /hpf (NONE SEEN) 06/25/18 19:45 Urine Opiates Screen NEGATIVE (NEGATIVE) 06/25/18 19:45 Urine Methadone Screen NEGATIVE (NEGATIVE) 06/25/18 19:45 Ur Barbiturates Screen NEGATIVE (NEGATIVE) 06/25/18 19:45 Ur Tricyclics Screen POSITIVE (NEGATIVE) H 06/25/18 19:45 Ur Phencyclidine Scrn NEGATIVE (NEGATIVE) 06/25/18 19:45 Amphetamines Screen NEGATIVE (NEGATIVE) 06/25/18 19:45 U Methamphetamines Scrn NEGATIVE (NEGATIVE) 06/25/18 19:45 U Benzodiazepines Scrn NEGATIVE (NEGATIVE) 06/25/18 19:45 U Cocaine Metab Screen NEGATIVE (NEGATIVE) 06/25/18 19:45 U Cannabinoids Screen NEGATIVE (NEGATIVE) 06/25/18 19:45 Ethyl Alcohol < 10 mg/dL (0-10) 06/25/18 19:36 - Physical Exam Vitals and I&O: Vital Signs Temp 98.1 F 06/30/18 20:55 Pulse 68 06/30/18 20:55 Resp 19 06/30/18 20:55 BP 126/72 06/30/18 20:55 Pulse Ox 98 06/30/18 20:55 Intake & Output 06/30/18 07/01/18 07/01/18 18:59 06:59 18:59 Intake Total 900 Balance 900 Intake: Oral 900 Other: # Voids 3 # Bowel Movements 1 Active Medications: Current Medications Acetaminophen (Tylenol) 650 mg PO Q4HR PRN PRN Reason: Mild Pain / Temp above 100 Stop: 08/24/18 21:53 Last Admin: 06/28/18 05:49 Dose: 650 mg Al Hydrox/Mg Hydrox/Simethicone (Maalox) 30 ml PO Q4HR PRN PRN Reason: GI DISTRESS Stop: 08/24/18 21:53 Atorvastatin Calcium (Lipitor) 20 mg PO HS PITER Stop: 04/17/19 20:59 Last Admin: 06/30/18 20:41 Dose: 20 mg Buspirone HCl (Buspar) 10 mg PO QAM PITER; Protocol Stop: 08/25/18 08:59 Last Admin: 06/30/18 09:13 Dose: 10 mg Buspirone HCl (Buspar) 10 mg PO QPM PITER; Protocol Stop: 08/25/18 16:59 Last Admin: 06/30/18 17:01 Dose: 10 mg Clonazepam (Klonopin) 1 mg PO BID PITER; Protocol Stop: 08/26/18 16:59 Last Admin: 06/30/18 17:01 Dose: 1 mg Levetiracetam (Keppra) 500 mg PO BID PITER Stop: 08/25/18 08:59 Last Admin: 06/30/18 17:01 Dose: 500 mg Lorazepam (Ativan) 0.5 mg PO Q4HR PRN; Protocol PRN Reason: Anxiety Stop: 07/25/18 21:53 Last Admin: 06/27/18 17:28 Dose: 0.5 mg Magnesium Hydroxide (Milk Of Magnesia) 30 ml PO HS PRN PRN Reason: Constipation Multivitamins/Vitamin C (Theragran) 1 tab PO DAILY PITER Stop: 08/25/18 08:59 Last Admin: 06/30/18 09:12 Dose: 1 tab Olanzapine (Zyprexa) 5 mg PO QAM PITER; Protocol Stop: 08/25/18 08:59 Last Admin: 06/30/18 09:13 Dose: 5 mg Olanzapine (Zyprexa) 10 mg PO HS PITER; Protocol Stop: 08/25/18 20:59 Last Admin: 06/30/18 20:41 Dose: 10 mg Oxybutynin Chloride (Ditropan) 5 mg PO DAILY PITER Stop: 08/25/18 08:59 Last Admin: 06/30/18 09:13 Dose: 5 mg Pantoprazole Sodium (Protonix) 40 mg PO QDAC PITER Stop: 08/25/18 07:29 Last Admin: 07/01/18 06:32 Dose: 40 mg Quetiapine Fumarate (Seroquel) 800 mg PO HS PITER; Protocol Stop: 08/25/18 20:59 Last Admin: 06/30/18 20:41 Dose: 800 mg Topiramate (Topamax) 100 mg PO BID [facility] Stop: 08/25/18 08:59 Last Admin: 06/30/18 17:01 Dose: 100 mg Verapamil HCl (Calan Sr) 120 mg PO DAILY [facility] Stop: 08/25/18 08:59 Last Admin: 06/30/18 09:14 Dose: 120 mg Zolpidem Tartrate (Ambien) 5 mg PO HS PRN PRN Reason: Insomnia Stop: 08/24/18 21:53 Last Admin: 06/30/18 22:36 Dose: 5 mg General: Alert, No acute distress HEENT: Atraumatic Neck: Supple Cardiovascular: Regular rate Lungs: Clear to auscultation Abdomen: Bowel sounds, Soft Extremities: Other (Left hemiparesis) Neurological: Other (Non ambulatory) Skin: Other (Warm and dry) Psych/Mental Status: Other (Confused) Assessment/Plan - Assessment Assessment: Patient is awake, alert, calm. Blood work is WNL. Dx: Increased in agitation, Schizophrenia, Seizure, left side hemiparesis, HTN. - Plan Plan: Patient is follow by psychiatry, continue with SNF meds. Will continue to monitor. Nutritional Asmnt/Malnutr-PDOC - Dietary Evaluation Malnutrition Findings (Please click <Entered> for more info): Nutritional Asmnt/Malnutrition Start: 06/26/18 10: 26 Text: Status: Complete Freq: Protocol: Document 06/29/18 18:29 LCHENG (Rec: 06/29/18 18:38 [email or web address]) Nutritional Asmnt/Malnutrition Patient General Information Nutritional Screening Moderate Risk Diagnosis psychosis Pertinent Medical Hx/Surgical Hx CVA/TIA, dyslipidemia, encephalopathy Subjective Information Pt seen in other pt room, confused, stated he is hungry, likes pancake. Per EMR, PO intake 50-75% Current Diet Order/ Nutrition Support regular Pertinent Medications lipitor, theragran, protonix, seroquel Pertinent Labs 06/25 reviewed Nutritional Hx/Data Height 1.78 m Height (Calculated Centimeters) 177.8 Current Weight (lbs) 92.986 kg Weight (Calculated Kilograms) 93.0 Weight (Calculated Grams) 61895.4 [place] Body Weight 166 Body Mass Index (BMI) 29.4 Weight Status Overweight GI Symptoms GI Symptoms None Last BM 06/27 Difficult in: None Skin Integrity/Comment: intact Current %PO Good (75-100%) Estimated Nutritional Goals BEE in Kcals: Using Current wt Calories/Kcals/Kg 20-25 Kcals Calculated 1151-8443 Protein: Using Current wt Protein g/k.8 Protein Calculated 74 Fluid: ml 1860-2325ml (1ml/kcal) Nutritional Problem No current Nutrition Prob Problem N/A Malnutrition Alert Is there a minimum of two criteria No selected? Query Text:Check all the applicable criteria. A minimum of two criteria are recommended for diagnosis of either severe or non-severe malnutrition. Malnutrition Related to Morbid Obesity Malnutrition related to morbid obesity No Intervention/Recommendation Comments 1. Continue with regular diet as ordered. 2. Monitor PO intake, wt, labs and skin integrity 3. F/U as low risk in 7 days Expected Outcomes/Goals Expected Outcomes/Goals 1. PO intake to meet at least 75% of nutritional needs. 2. Wt stability, skin to remain intact, labs to approach WNL.
[2018-07-01] MEDS: Verapamil HCl SR 120 mg Tab PO SCH (16:26)
[2018-07-01] MEDS: Atorvastatin Calcium 10 MG TAB PO SCH (20:47)
--- NOTE | 2018-07-02 05:05 | Progress Notes ---
DATE: 07/01/2018 PSYCHIATRIC PROGRESS NOTE SUBJECTIVE: Staff was spoken to. The patient is interviewed. Mood is noted to be irritable. Affect is constricted. The patient is pacing on the unit, but the patient could be redirectable at this time. No side effects to the medications are noted. The patient is currently on olanzapine as well as Seroquel and the patient's olanzapine is going to be discontinued and the patient is going to be continued only on the Seroquel and the patient is going to be closely monitored. The patient, at this time, has been able to participate in the groups and verbalize the concerns. No major side effects to the medications are noted. ASSESSMENT: The patient's psychosis is resolving. PLAN: Continue the patient with supportive therapy and follow up. JOB# [id number]
[2018-07-02] MEDS: Pantoprazole 40 mg EC Tab PO SCH (06:31)
[2018-07-02] MEDS: Verapamil HCl SR 120 mg Tab PO SCH (09:03)
[2018-07-02] MEDS: Multivitamin Tab PO SCH (09:04)
[2018-07-02] MEDS: Atorvastatin Calcium 10 MG TAB PO SCH (21:18)
--- NOTE | 2018-07-03 02:45 | Progress Notes ---
DATE: 07/02/2018 PSYCHIATRIC PROGRESS NOTE SUBJECTIVE: Staff was spoken to. The patient is interviewed. Mood is noted to be irritable. Affect is constricted. Insight and judgment are noted to be still impaired. Impulse control is noted to be poor. Coping skills are also noted to be very poor. The patient has been pacing on the unit. No side effects to the medications are noted at this time. The patient has been on Seroquel 800 mg at bedtime and has been able to tolerate. ASSESSMENT: The patient is still impulsive. PLAN: Continue the patient with supportive therapy. I encouraged the patient to verbalize the concerns rather than to act out. The patient is going to be closely monitored and aggressive behavior is going to be addressed. JOB# [id number]
[2018-07-03] MEDS: Pantoprazole 40 mg EC Tab PO SCH (06:51)
--- NOTE | 2018-07-03 08:30 | General Progress Note ---
Subjective - Review of Systems Service Date: 07/03/18 Subjective: I am fine Objective - Results Result Diagrams: 06/25/18 19:36 06/25/18 19:36 Recent Labs: Laboratory Last Values WBC 10.6 Th/cmm (4.8-10.8) 06/25/18 19:36 RBC 5.40 Mil/cmm (4.30-5.70) 06/25/18 19:36 Hgb 16.0 gm/dL (12-16) 06/25/18 19:36 Hct 48.3 % (41.0-60) 06/25/18 19:36 MCV 89.4 fl (80-99) 06/25/18 19:36 MCH 29.6 pg (26.0-30.0) 06/25/18 19:36 MCHC Differential 33.1 pg (28.0-36.0) 06/25/18 19:36 RDW 12.4 % (11.5-20.0) 06/25/18 19:36 Plt Count 205 Th/cmm (150-400) 06/25/18 19:36 MPV 8.4 fl 06/25/18 19:36 Neutrophils % 63.7 % (40.0-80.0) 06/25/18 19:36 Lymphocytes % 27.0 % (20.0-50.0) 06/25/18 19:36 Monocytes % 7.3 % (2.0-10.0) 06/25/18 19:36 Eosinophils % 1.7 % (0.0-5.0) 06/25/18 19:36 Basophils % 0.3 % (0.0-2.0) 06/25/18 19:36 Sodium 139 mEq/L (136-145) 06/25/18 19:36 Potassium 3.6 mEq/L (3.5-5.1) 06/25/18 19:36 Chloride 106 mEq/L (98-107) 06/25/18 19:36 Carbon Dioxide 24.8 mEq/L (21.0-31.0) 06/25/18 19:36 Anion Gap 11.8 (7.0-16.0) 06/25/18 19:36 BUN 11 mg/dL (7-25) 06/25/18 19:36 Creatinine 0.7 mg/dL (0.7-1.3) 06/25/18 19:36 Est GFR ( Amer) > 60.0 ml/min (>90) 06/25/18 19:36 Est GFR (Non-Af Amer) > 60.0 ml/min 06/25/18 19:36 BUN/Creatinine Ratio 15.7 06/25/18 19:36 Glucose 97 mg/dL (70-105) 06/25/18 19:36 Calcium 9.5 mg/dL (8.6-10.3) 06/25/18 19:36 Total Bilirubin 0.3 mg/dL (0.3-1.0) 06/25/18 19:36 AST 14 U/L (13-39) 06/25/18 19:36 ALT 17 U/L (7-52) 06/25/18 19:36 Alkaline Phosphatase 78 U/L (34-104) 06/25/18 19:36 Total Protein 7.4 gm/dL (6.0-8.3) 06/25/18 19:36 Albumin 4.6 gm/dL (4.2-5.5) 06/25/18 19:36 Globulin 2.8 gm/dL 06/25/18 19:36 Albumin/Globulin Ratio 1.6 (1.0-1.8) 06/25/18 19:36 Urine Source CLEAN C 06/25/18 19:45 Urine Color YELLOW 06/25/18 19:45 Urine Clarity CLEAR (CLEAR) 06/25/18 19:45 Urine pH 7.0 (4.6 - 8.0) 06/25/18 19:45 Ur Specific [place] 1.010 (1.005-1.030) 06/25/18 19:45 Urine Protein NEGATIVE mg/dL (NEGATIVE) 06/25/18 19:45 Urine Glucose (UA) NEGATIVE mg/dL (NEGATIVE) 06/25/18 19:45 Urine Ketones NEGATIVE mg/dL (NEGATIVE) 06/25/18 19:45 Urine Blood NEGATIVE (NEGATIVE) 06/25/18 19:45 Urine Nitrate NEGATIVE (NEGATIVE) 06/25/18 19:45 Urine Bilirubin NEGATIVE (NEGATIVE) 06/25/18 19:45 Urine Urobilinogen 0.2 E.U./dL (0.2 - 1.0) 06/25/18 19:45 Ur Leukocyte Esterase TRACE (NEGATIVE) H 06/25/18 19:45 Urine RBC NONE SEEN /hpf (0-5) 06/25/18 19:45 Urine WBC 0-2 /hpf (0-5) 06/25/18 19:45 Ur Epithelial Cells NONE SEEN /lpf (FEW) 06/25/18 19:45 Urine Bacteria FEW /hpf (NONE SEEN) 06/25/18 19:45 Urine Opiates Screen NEGATIVE (NEGATIVE) 06/25/18 19:45 Urine Methadone Screen NEGATIVE (NEGATIVE) 06/25/18 19:45 Ur Barbiturates Screen NEGATIVE (NEGATIVE) 06/25/18 19:45 Ur Tricyclics Screen POSITIVE (NEGATIVE) H 06/25/18 19:45 Ur Phencyclidine Scrn NEGATIVE (NEGATIVE) 06/25/18 19:45 Amphetamines Screen NEGATIVE (NEGATIVE) 06/25/18 19:45 U Methamphetamines Scrn NEGATIVE (NEGATIVE) 06/25/18 19:45 U Benzodiazepines Scrn NEGATIVE (NEGATIVE) 06/25/18 19:45 U Cocaine Metab Screen NEGATIVE (NEGATIVE) 06/25/18 19:45 U Cannabinoids Screen NEGATIVE (NEGATIVE) 06/25/18 19:45 Ethyl Alcohol < 10 mg/dL (0-10) 06/25/18 19:36 - Physical Exam Vitals and I&O: Vital Signs Temp 97.4 F 07/03/18 06:25 Pulse 83 07/03/18 06:25 Resp 20 07/03/18 06:25 BP 133/74 07/03/18 06:25 Pulse Ox 100 07/03/18 06:25 Intake & Output 07/02/18 07/03/18 07/03/18 18:59 06:59 18:59 Intake Total 1000 240 Balance 1000 240 Intake: Oral 1000 240 Other: # Voids 4 3 # Bowel Movements 1 0 Active Medications: Current Medications Acetaminophen (Tylenol) 650 mg PO Q4HR PRN PRN Reason: Mild Pain / Temp above 100 Stop: 08/24/18 21:53 Last Admin: 06/28/18 05:49 Dose: 650 mg Al Hydrox/Mg Hydrox/Simethicone (Maalox) 30 ml PO Q4HR PRN PRN Reason: GI DISTRESS Stop: 08/24/18 21:53 Atorvastatin Calcium (Lipitor) 20 mg PO HS PITER Stop: 04/17/19 20:59 Last Admin: 07/02/18 21:18 Dose: 20 mg Clonazepam (Klonopin) 1 mg PO BID PITER; Protocol Stop: 08/26/18 16:59 Last Admin: 07/02/18 17:24 Dose: 1 mg Levetiracetam (Keppra) 500 mg PO BID PITER Stop: 08/25/18 08:59 Last Admin: 07/02/18 17:24 Dose: 500 mg Lorazepam (Ativan) 0.5 mg PO Q4HR PRN; Protocol PRN Reason: Anxiety Stop: 07/25/18 21:53 Last Admin: 06/27/18 17:28 Dose: 0.5 mg Magnesium Hydroxide (Milk Of Magnesia) 30 ml PO HS PRN PRN Reason: Constipation Miscellaneous (Misc Oral Tab) 1 tab PO QAM [facility]; Protocol Stop: 08/30/18 11:14 Last Admin: 07/02/18 09:04 Dose: 1 tab Miscellaneous (Misc Oral Tab) 1 tab PO QPM PITER; Protocol Stop: 08/30/18 11:14 Last Admin: 07/02/18 17:24 Dose: 1 tab Multivitamins/Vitamin C (Theragran) 1 tab PO DAILY PITER Stop: 08/25/18 08:59 Last Admin: 07/02/18 09:04 Dose: 1 tab Oxybutynin Chloride (Ditropan) 5 mg PO DAILY PITER Stop: 08/25/18 08:59 Last Admin: 07/02/18 09:03 Dose: 5 mg Pantoprazole Sodium (Protonix) 40 mg PO QDAC PITER Stop: 08/25/18 07:29 Last Admin: 07/03/18 06:51 Dose: 40 mg Quetiapine Fumarate (Seroquel) 800 mg PO HS PITER; Protocol Stop: 08/25/18 20:59 Last Admin: 07/02/18 21:18 Dose: 800 mg Topiramate (Topamax) 100 mg PO BID PITER Stop: 08/25/18 08:59 Last Admin: 07/02/18 17:23 Dose: 100 mg Verapamil HCl (Calan Sr) 120 mg PO DAILY PITER Stop: 08/25/18 08:59 Last Admin: 07/02/18 09:03 Dose: 120 mg Zolpidem Tartrate (Ambien) 5 mg PO HS PRN PRN Reason: Insomnia Stop: 08/24/18 21:53 Last Admin: 06/30/18 22:36 Dose: 5 mg General: Alert, No acute distress HEENT: Atraumatic Neck: Supple Cardiovascular: Regular rate Lungs: Clear to auscultation Abdomen: Bowel sounds, Soft Extremities: Other (Left hemiparesis) Neurological: Other (Non ambulatory) Skin: Other (Warm and dry) Psych/Mental Status: Other (Confused) Assessment/Plan - Assessment Assessment: Patient is awake, alert, calm. Blood work is WNL. Dx: Increased in agitation, Schizophrenia, Seizure, left side hemiparesis, HTN. - Plan Plan: Patient is follow by psychiatry, continue with SNF meds. Will continue to monitor. Nutritional Asmnt/Malnutr-PDOC - Dietary Evaluation Malnutrition Findings (Please click <Entered> for more info): Nutritional Asmnt/Malnutrition Start: 06/26/18 10: 26 Text: Status: Complete Freq: Protocol: Document 06/29/18 18:29 LCHENG (Rec: 06/29/18 18:38 [email or web address] [email or web address]) Nutritional Asmnt/Malnutrition Patient General Information Nutritional Screening Moderate Risk Diagnosis psychosis Pertinent Medical Hx/Surgical Hx CVA/TIA, dyslipidemia, encephalopathy Subjective Information Pt seen in other pt room, confused, stated he is hungry, likes pancake. Per EMR, PO intake 50-75% Current Diet Order/ Nutrition Support regular Pertinent Medications lipitor, theragran, protonix, seroquel Pertinent Labs 06/25 reviewed Nutritional Hx/Data Height 1.78 m Height (Calculated Centimeters) 177.8 Current Weight (lbs) 92.986 kg Weight (Calculated Kilograms) 93.0 Weight (Calculated Grams) 67943.4 [place] Body Weight 166 Body Mass Index (BMI) 29.4 Weight Status Overweight GI Symptoms GI Symptoms None Last BM 06/27 Difficult in: None Skin Integrity/Comment: intact Current %PO Good (75-100%) Estimated Nutritional Goals BEE in Kcals: Using Current wt Calories/Kcals/Kg 20-25 Kcals Calculated 3670-4907 Protein: Using Current wt Protein g/k.8 Protein Calculated 74 Fluid: ml 1860-2325ml (1ml/kcal) Nutritional Problem No current Nutrition Prob Problem N/A Malnutrition Alert Is there a minimum of two criteria No selected? Query Text:Check all the applicable criteria. A minimum of two criteria are recommended for diagnosis of either severe or non-severe malnutrition. Malnutrition Related to Morbid Obesity Malnutrition related to morbid obesity No Intervention/Recommendation Comments 1. Continue with regular diet as ordered. 2. Monitor PO intake, wt, labs and skin integrity 3. F/U as low risk in 7 days Expected Outcomes/Goals Expected Outcomes/Goals 1. PO intake to meet at least 75% of nutritional needs. 2. Wt stability, skin to remain intact, labs to approach WNL.
[2018-07-03] MEDS: Verapamil HCl SR 120 mg Tab PO SCH (08:51)
[2018-07-03] MEDS: Multivitamin Tab PO SCH (08:53)
[2018-07-03] MEDS: Atorvastatin Calcium 10 MG TAB PO SCH (20:28)
--- NOTE | 2018-07-03 20:56 | Progress Notes ---
DATE: 07/02/2018 PSYCHOLOGY PROGRESS NOTE SUBJECTIVE: The patient is seen and is interviewed. Case is discussed with staff. The patient continues to be guarded and irritable. The patient continues to pace on the unit. Staff indicates the patient is having difficulty sleeping. The patient has been taking his p.o. medications. He states he doesn 't need to be in the hospital. OBJECTIVE: Mood is irritable. Affect is constricted. Thought process shows to be confused and oppositional. The patient denied any delusions or hallucinations. The patient's behavior is still impulsive and poorly redirectable. ASSESSMENT AND PLAN: The patient continues to be impulsive and pacing on the unit. We provided limit setting and de-escalation. We provided stress management for the patient to increase his frustration tolerance. We encouraged the patient to demonstrate emotional and self-regulation and to verbalize his concerns versus acting out. We will continue to provide supportive therapy. We will follow up in 2-3 days to continue the present treatment. [facility]# [id number] EMMA
--- NOTE | 2018-07-04 04:36 | Progress Notes ---
DATE: 07/03/2018 PSYCHIATRIC PROGRESS NOTE SUBJECTIVE: Staff was spoken to. The patient is interviewed. Mood is noted to be depressed. Affect is constricted. The patient is isolative and withdrawn. The patient has been pacing most of the time on the unit. The patient's aggressive behavior has been coming down. No side effects to the medications are noted at this time. Insight and judgment are noted to be improving. ASSESSMENT: The patient's psychosis is resolving. PLAN: To continue the patient with the current medications and followup. JOB# [id number]
[2018-07-04] MEDS: Pantoprazole 40 mg EC Tab PO SCH (06:40)
[2018-07-04] MEDS: Verapamil HCl SR 120 mg Tab PO SCH (08:29)
[2018-07-04] MEDS: Multivitamin Tab PO SCH (08:29)
[2018-07-04] MEDS ORDERED: Haloperidol Lactate 5 mg/mL 1mL Vial IM ONE (10:07)
[2018-07-04] MEDS ORDERED: Haloperidol Lactate 5 mg/mL 1mL Vial ONE (10:10)
[2018-07-04] MEDS: Atorvastatin Calcium 10 MG TAB PO SCH (20:15)
--- NOTE | 2018-07-04 21:47 | Progress Notes ---
DATE: 07/04/2018 SUBJECTIVE: Staff was spoken to. The patient is interviewed. Mood is noted to be irritable. Affect is constricted. The patient is screaming and yelling and has been trying to hit other people. The patient has no insight into his illness. Coping skills at this time are noted to be very poor. The patient needs to be medicated at this time. ASSESSMENT: The patient is still impulsive and is not able to contract for safety. PLAN: To continue the patient with supportive therapy. I encouraged the patient to verbalize the concerns rather than to act out. JOB# [id number]
[2018-07-05] MEDS: Pantoprazole 40 mg EC Tab PO SCH (06:33)
[2018-07-05] MEDS: Multivitamin Tab PO SCH (08:26)
[2018-07-05] MEDS: Verapamil HCl SR 120 mg Tab PO SCH (08:35)
--- NOTE | 2018-07-05 08:42 | General Progress Note ---
Subjective - Review of Systems Service Date: 07/05/18 Subjective: I am fine Objective - Results Result Diagrams: 06/25/18 19:36 06/25/18 19:36 Recent Labs: Laboratory Last Values WBC 10.6 Th/cmm (4.8-10.8) 06/25/18 19:36 RBC 5.40 Mil/cmm (4.30-5.70) 06/25/18 19:36 Hgb 16.0 gm/dL (12-16) 06/25/18 19:36 Hct 48.3 % (41.0-60) 06/25/18 19:36 MCV 89.4 fl (80-99) 06/25/18 19:36 MCH 29.6 pg (26.0-30.0) 06/25/18 19:36 MCHC Differential 33.1 pg (28.0-36.0) 06/25/18 19:36 RDW 12.4 % (11.5-20.0) 06/25/18 19:36 Plt Count 205 Th/cmm (150-400) 06/25/18 19:36 MPV 8.4 fl 06/25/18 19:36 Neutrophils % 63.7 % (40.0-80.0) 06/25/18 19:36 Lymphocytes % 27.0 % (20.0-50.0) 06/25/18 19:36 Monocytes % 7.3 % (2.0-10.0) 06/25/18 19:36 Eosinophils % 1.7 % (0.0-5.0) 06/25/18 19:36 Basophils % 0.3 % (0.0-2.0) 06/25/18 19:36 Sodium 139 mEq/L (136-145) 06/25/18 19:36 Potassium 3.6 mEq/L (3.5-5.1) 06/25/18 19:36 Chloride 106 mEq/L (98-107) 06/25/18 19:36 Carbon Dioxide 24.8 mEq/L (21.0-31.0) 06/25/18 19:36 Anion Gap 11.8 (7.0-16.0) 06/25/18 19:36 BUN 11 mg/dL (7-25) 06/25/18 19:36 Creatinine 0.7 mg/dL (0.7-1.3) 06/25/18 19:36 Est GFR ( Amer) > 60.0 ml/min (>90) 06/25/18 19:36 Est GFR (Non-Af Amer) > 60.0 ml/min 06/25/18 19:36 BUN/Creatinine Ratio 15.7 06/25/18 19:36 Glucose 97 mg/dL (70-105) 06/25/18 19:36 Calcium 9.5 mg/dL (8.6-10.3) 06/25/18 19:36 Total Bilirubin 0.3 mg/dL (0.3-1.0) 06/25/18 19:36 AST 14 U/L (13-39) 06/25/18 19:36 ALT 17 U/L (7-52) 06/25/18 19:36 Alkaline Phosphatase 78 U/L (34-104) 06/25/18 19:36 Total Protein 7.4 gm/dL (6.0-8.3) 06/25/18 19:36 Albumin 4.6 gm/dL (4.2-5.5) 06/25/18 19:36 Globulin 2.8 gm/dL 06/25/18 19:36 Albumin/Globulin Ratio 1.6 (1.0-1.8) 06/25/18 19:36 Urine Source CLEAN C 06/25/18 19:45 Urine Color YELLOW 06/25/18 19:45 Urine Clarity CLEAR (CLEAR) 06/25/18 19:45 Urine pH 7.0 (4.6 - 8.0) 06/25/18 19:45 Ur Specific [place] 1.010 (1.005-1.030) 06/25/18 19:45 Urine Protein NEGATIVE mg/dL (NEGATIVE) 06/25/18 19:45 Urine Glucose (UA) NEGATIVE mg/dL (NEGATIVE) 06/25/18 19:45 Urine Ketones NEGATIVE mg/dL (NEGATIVE) 06/25/18 19:45 Urine Blood NEGATIVE (NEGATIVE) 06/25/18 19:45 Urine Nitrate NEGATIVE (NEGATIVE) 06/25/18 19:45 Urine Bilirubin NEGATIVE (NEGATIVE) 06/25/18 19:45 Urine Urobilinogen 0.2 E.U./dL (0.2 - 1.0) 06/25/18 19:45 Ur Leukocyte Esterase TRACE (NEGATIVE) H 06/25/18 19:45 Urine RBC NONE SEEN /hpf (0-5) 06/25/18 19:45 Urine WBC 0-2 /hpf (0-5) 06/25/18 19:45 Ur Epithelial Cells NONE SEEN /lpf (FEW) 06/25/18 19:45 Urine Bacteria FEW /hpf (NONE SEEN) 06/25/18 19:45 Urine Opiates Screen NEGATIVE (NEGATIVE) 06/25/18 19:45 Urine Methadone Screen NEGATIVE (NEGATIVE) 06/25/18 19:45 Ur Barbiturates Screen NEGATIVE (NEGATIVE) 06/25/18 19:45 Ur Tricyclics Screen POSITIVE (NEGATIVE) H 06/25/18 19:45 Ur Phencyclidine Scrn NEGATIVE (NEGATIVE) 06/25/18 19:45 Amphetamines Screen NEGATIVE (NEGATIVE) 06/25/18 19:45 U Methamphetamines Scrn NEGATIVE (NEGATIVE) 06/25/18 19:45 U Benzodiazepines Scrn NEGATIVE (NEGATIVE) 06/25/18 19:45 U Cocaine Metab Screen NEGATIVE (NEGATIVE) 06/25/18 19:45 U Cannabinoids Screen NEGATIVE (NEGATIVE) 06/25/18 19:45 Ethyl Alcohol < 10 mg/dL (0-10) 06/25/18 19:36 - Physical Exam Vitals and I&O: Vital Signs Temp 98.0 F 07/05/18 05:52 Pulse 87 07/05/18 08:35 Resp 19 07/05/18 05:52 BP 113/67 07/05/18 08:35 Pulse Ox 97 07/05/18 05:52 Intake & Output 07/04/18 07/05/18 07/05/18 18:59 06:59 18:59 Intake Total 180 Balance 180 Intake: Oral 180 Other: # Voids 1 # Bowel Movements 0 Active Medications: Current Medications Acetaminophen (Tylenol) 650 mg PO Q4HR PRN PRN Reason: Mild Pain / Temp above 100 Stop: 08/24/18 21:53 Last Admin: 06/28/18 05:49 Dose: 650 mg Al Hydrox/Mg Hydrox/Simethicone (Maalox) 30 ml PO Q4HR PRN PRN Reason: GI DISTRESS Stop: 08/24/18 21:53 Atorvastatin Calcium (Lipitor) 20 mg PO HS PITER Stop: 08/25/18 20:59 Last Admin: 07/04/18 20:15 Dose: 20 mg Clonazepam (Klonopin) 1 mg PO BID PITER; Protocol Stop: 08/26/18 16:59 Last Admin: 07/05/18 08:26 Dose: 1 mg Levetiracetam (Keppra) 500 mg PO BID PITER Stop: 08/25/18 08:59 Last Admin: 07/05/18 08:26 Dose: 500 mg Lorazepam (Ativan) 0.5 mg PO Q4HR PRN; Protocol PRN Reason: Anxiety Stop: 07/25/18 21:53 Last Admin: 07/04/18 20:16 Dose: 0.5 mg Magnesium Hydroxide (Milk Of Magnesia) 30 ml PO HS PRN PRN Reason: Constipation Miscellaneous (Misc Oral Tab) 1 tab PO QAM [facility]; Protocol Stop: 08/30/18 11:14 Last Admin: 07/05/18 08:25 Dose: 1 tab Miscellaneous (Misc Oral Tab) 1 tab PO QPM PITER; Protocol Stop: 08/30/18 11:14 Last Admin: 07/04/18 16:19 Dose: 1 tab Multivitamins/Vitamin C (Theragran) 1 tab PO DAILY PITER Stop: 08/25/18 08:59 Last Admin: 07/05/18 08:26 Dose: 1 tab Oxybutynin Chloride (Ditropan) 5 mg PO DAILY PITER Stop: 08/25/18 08:59 Last Admin: 07/05/18 08:26 Dose: 5 mg Pantoprazole Sodium (Protonix) 40 mg PO QDAC PITER Stop: 08/25/18 07:29 Last Admin: 07/05/18 06:33 Dose: 40 mg Quetiapine Fumarate (Seroquel) 800 mg PO HS PITER; Protocol Stop: 08/25/18 20:59 Last Admin: 07/04/18 20:16 Dose: 800 mg Topiramate (Topamax) 100 mg PO BID PITER Stop: 08/25/18 08:59 Last Admin: 07/05/18 08:26 Dose: 100 mg Verapamil HCl (Calan Sr) 120 mg PO DAILY PITER Stop: 08/25/18 08:59 Last Admin: 07/05/18 08:35 Dose: 120 mg Zolpidem Tartrate (Ambien) 5 mg PO HS PRN PRN Reason: Insomnia Stop: 08/24/18 21:53 Last Admin: 07/04/18 20:16 Dose: 5 mg General: Alert, No acute distress HEENT: Atraumatic Neck: Supple Cardiovascular: Regular rate Lungs: Clear to auscultation Abdomen: Bowel sounds, Soft Extremities: Other (Left hemiparesis) Neurological: Other (Non ambulatory) Skin: Other (Warm and dry) Psych/Mental Status: Other (Confused) Assessment/Plan - Assessment Assessment: Patient is awake, alert, calm. Blood work is WNL. Dx: Increased in agitation, Schizophrenia, Seizure, left side hemiparesis, HTN. - Plan Plan: Patient is follow by psychiatry, continue with SNF meds. Will continue to monitor. Nutritional Asmnt/Malnutr-PDOC - Dietary Evaluation Malnutrition Findings (Please click <Entered> for more info): Nutritional Asmnt/Malnutrition Start: 06/26/18 10: 26 Text: Status: Complete Freq: Protocol: Document 06/29/18 18:29 LCHENG (Rec: 06/29/18 18:38 [email or web address]) Nutritional Asmnt/Malnutrition Patient General Information Nutritional Screening Moderate Risk Diagnosis psychosis Pertinent Medical Hx/Surgical Hx CVA/TIA, dyslipidemia, encephalopathy Subjective Information Pt seen in other pt room, confused, stated he is hungry, likes pancake. Per EMR, PO intake 50-75% Current Diet Order/ Nutrition Support regular Pertinent Medications lipitor, theragran, protonix, seroquel Pertinent Labs 06/25 reviewed Nutritional Hx/Data Height 1.78 m Height (Calculated Centimeters) 177.8 Current Weight (lbs) 92.986 kg Weight (Calculated Kilograms) 93.0 Weight (Calculated Grams) 63722.4 [place] Body Weight 166 Body Mass Index (BMI) 29.4 Weight Status Overweight GI Symptoms GI Symptoms None Last BM 06/27 Difficult in: None Skin Integrity/Comment: intact Current %PO Good (75-100%) Estimated Nutritional Goals BEE in Kcals: Using Current wt Calories/Kcals/Kg 20-25 Kcals Calculated 6541-4002 Protein: Using Current wt Protein g/k.8 Protein Calculated 74 Fluid: ml 1860-2325ml (1ml/kcal) Nutritional Problem No current Nutrition Prob Problem N/A Malnutrition Alert Is there a minimum of two criteria No selected? Query Text:Check all the applicable criteria. A minimum of two criteria are recommended for diagnosis of either severe or non-severe malnutrition. Malnutrition Related to Morbid Obesity Malnutrition related to morbid obesity No Intervention/Recommendation Comments 1. Continue with regular diet as ordered. 2. Monitor PO intake, wt, labs and skin integrity 3. F/U as low risk in 7 days Expected Outcomes/Goals Expected Outcomes/Goals 1. PO intake to meet at least 75% of nutritional needs. 2. Wt stability, skin to remain intact, labs to approach WNL.
[2018-07-05] MEDS: Atorvastatin Calcium 10 MG TAB PO SCH (20:14)
--- NOTE | 2018-07-06 01:53 | Progress Notes ---
DATE: 07/05/2018 PSYCHOLOGY PROGRESS NOTE SUBJECTIVE: The patient is seen and is interviewed. Case is discussed with staff. The patient presents as irritable. The patient continues to have yelling episodes as well as striking out at other people. The patient is poorly redirectable. The patient is unable to contract for safety and is not responding to cognitive or behavioral redirection or de-escalation. The attending psychiatrist has been called with respect to possible use of emergency medicine. OBJECTIVE: Mood is irritable and angry. Affect is constricted. The patient seems to be responding to internal stimuli and yelling at providers as well as other patients on the unit and sometimes striking out towards them. The patient's response to clinical questions was incoherent and irrelevant. The patient did not respond well to de-escalation. The patient did not answer questions about experiencing hallucinations or delusions. Paranoid ideation is present. ASSESSMENT: The patient continues to be impulsive and uncontainable. We will continue to provide de-escalation and limit setting. PLAN: We will provide remotivation for the patient to become compliant and stay compliant with all aspects of his care and treatment. We will encourage the patient to verbalize his concerns versus acting out. We will provide daily opportunities for the patient to contract for safety. We will encourage the patient to demonstrate emotional and self-regulation prior to his discharge. We will continue to provide coping strategies for chronic severe mental illness as well as phase of life issues. We will follow up in 2-3 days to continue the present treatment. This loan underwriter will reassess the patient for the capacity to benefit from this type of treatment. JOB# [id number] EMMA
--- NOTE | 2018-07-06 03:45 | Progress Notes ---
DATE: 07/05/2018 SUBJECTIVE: Staff was spoken to. The patient is interviewed. Mood is noted to be irritable. Affect is constricted. Insight and judgment noted to be still impaired. Impulse control is very poor. Coping skills are also noted to be very poor. The patient has been still testing the limits. The patient has no insight into his illness. The patient needs to be redirected at this time. ASSESSMENT: The patient is still grossly psychotic. PLAN: To continue the patient with the supportive therapy and followup. JOB# [id number]
[2018-07-06] MEDS: Pantoprazole 40 mg EC Tab PO SCH (06:33)
--- NOTE | 2018-07-06 09:06 | General Progress Note ---
Subjective - Review of Systems Service Date: 07/06/18 Subjective: I am fine Objective - Results Result Diagrams: 06/25/18 19:36 06/25/18 19:36 Recent Labs: Laboratory Last Values WBC 10.6 Th/cmm (4.8-10.8) 06/25/18 19:36 RBC 5.40 Mil/cmm (4.30-5.70) 06/25/18 19:36 Hgb 16.0 gm/dL (12-16) 06/25/18 19:36 Hct 48.3 % (41.0-60) 06/25/18 19:36 MCV 89.4 fl (80-99) 06/25/18 19:36 MCH 29.6 pg (26.0-30.0) 06/25/18 19:36 MCHC Differential 33.1 pg (28.0-36.0) 06/25/18 19:36 RDW 12.4 % (11.5-20.0) 06/25/18 19:36 Plt Count 205 Th/cmm (150-400) 06/25/18 19:36 MPV 8.4 fl 06/25/18 19:36 Neutrophils % 63.7 % (40.0-80.0) 06/25/18 19:36 Lymphocytes % 27.0 % (20.0-50.0) 06/25/18 19:36 Monocytes % 7.3 % (2.0-10.0) 06/25/18 19:36 Eosinophils % 1.7 % (0.0-5.0) 06/25/18 19:36 Basophils % 0.3 % (0.0-2.0) 06/25/18 19:36 Sodium 139 mEq/L (136-145) 06/25/18 19:36 Potassium 3.6 mEq/L (3.5-5.1) 06/25/18 19:36 Chloride 106 mEq/L (98-107) 06/25/18 19:36 Carbon Dioxide 24.8 mEq/L (21.0-31.0) 06/25/18 19:36 Anion Gap 11.8 (7.0-16.0) 06/25/18 19:36 BUN 11 mg/dL (7-25) 06/25/18 19:36 Creatinine 0.7 mg/dL (0.7-1.3) 06/25/18 19:36 Est GFR ( Amer) > 60.0 ml/min (>90) 06/25/18 19:36 Est GFR (Non-Af Amer) > 60.0 ml/min 06/25/18 19:36 BUN/Creatinine Ratio 15.7 06/25/18 19:36 Glucose 97 mg/dL (70-105) 06/25/18 19:36 Calcium 9.5 mg/dL (8.6-10.3) 06/25/18 19:36 Total Bilirubin 0.3 mg/dL (0.3-1.0) 06/25/18 19:36 AST 14 U/L (13-39) 06/25/18 19:36 ALT 17 U/L (7-52) 06/25/18 19:36 Alkaline Phosphatase 78 U/L (34-104) 06/25/18 19:36 Total Protein 7.4 gm/dL (6.0-8.3) 06/25/18 19:36 Albumin 4.6 gm/dL (4.2-5.5) 06/25/18 19:36 Globulin 2.8 gm/dL 06/25/18 19:36 Albumin/Globulin Ratio 1.6 (1.0-1.8) 06/25/18 19:36 Urine Source CLEAN C 06/25/18 19:45 Urine Color YELLOW 06/25/18 19:45 Urine Clarity CLEAR (CLEAR) 06/25/18 19:45 Urine pH 7.0 (4.6 - 8.0) 06/25/18 19:45 Ur Specific [employer] 1.010 (1.005-1.030) 06/25/18 19:45 Urine Protein NEGATIVE mg/dL (NEGATIVE) 06/25/18 19:45 Urine Glucose (UA) NEGATIVE mg/dL (NEGATIVE) 06/25/18 19:45 Urine Ketones NEGATIVE mg/dL (NEGATIVE) 06/25/18 19:45 Urine Blood NEGATIVE (NEGATIVE) 06/25/18 19:45 Urine Nitrate NEGATIVE (NEGATIVE) 06/25/18 19:45 Urine Bilirubin NEGATIVE (NEGATIVE) 06/25/18 19:45 Urine Urobilinogen 0.2 E.U./dL (0.2 - 1.0) 06/25/18 19:45 Ur Leukocyte Esterase TRACE (NEGATIVE) H 06/25/18 19:45 Urine RBC NONE SEEN /hpf (0-5) 06/25/18 19:45 Urine WBC 0-2 /hpf (0-5) 06/25/18 19:45 Ur Epithelial Cells NONE SEEN /lpf (FEW) 06/25/18 19:45 Urine Bacteria FEW /hpf (NONE SEEN) 06/25/18 19:45 Urine Opiates Screen NEGATIVE (NEGATIVE) 06/25/18 19:45 Urine Methadone Screen NEGATIVE (NEGATIVE) 06/25/18 19:45 Ur Barbiturates Screen NEGATIVE (NEGATIVE) 06/25/18 19:45 Ur Tricyclics Screen POSITIVE (NEGATIVE) H 06/25/18 19:45 Ur Phencyclidine Scrn NEGATIVE (NEGATIVE) 06/25/18 19:45 Amphetamines Screen NEGATIVE (NEGATIVE) 06/25/18 19:45 U Methamphetamines Scrn NEGATIVE (NEGATIVE) 06/25/18 19:45 U Benzodiazepines Scrn NEGATIVE (NEGATIVE) 06/25/18 19:45 U Cocaine Metab Screen NEGATIVE (NEGATIVE) 06/25/18 19:45 U Cannabinoids Screen NEGATIVE (NEGATIVE) 06/25/18 19:45 Ethyl Alcohol < 10 mg/dL (0-10) 06/25/18 19:36 - Physical Exam Vitals and I&O: Vital Signs Temp 97.2 F 07/06/18 06:28 Pulse 70 07/06/18 06:28 Resp 19 07/06/18 06:28 BP 122/67 07/06/18 06:28 Pulse Ox 98 07/06/18 06:28 Intake & Output 07/05/18 07/06/18 07/06/18 18:59 06:59 18:59 Intake Total 950 120 Balance 950 120 Intake: Oral 950 120 Other: # Voids 4 3 # Bowel Movements 1 0 Active Medications: Current Medications Acetaminophen (Tylenol) 650 mg PO Q4HR PRN PRN Reason: Mild Pain / Temp above 100 Stop: 08/24/18 21:53 Last Admin: 06/28/18 05:49 Dose: 650 mg Al Hydrox/Mg Hydrox/Simethicone (Maalox) 30 ml PO Q4HR PRN PRN Reason: GI DISTRESS Stop: 08/24/18 21:53 Atorvastatin Calcium (Lipitor) 20 mg PO HS PITER Stop: 04/17/19 20:59 Last Admin: 07/05/18 20:14 Dose: 20 mg Clonazepam (Klonopin) 1 mg PO BID PITER; Protocol Stop: 08/26/18 16:59 Last Admin: 07/05/18 16:27 Dose: 1 mg Levetiracetam (Keppra) 500 mg PO BID PITER Stop: 08/25/18 08:59 Last Admin: 07/05/18 16:27 Dose: 500 mg Lorazepam (Ativan) 0.5 mg PO Q4HR PRN; Protocol PRN Reason: Anxiety Stop: 07/25/18 21:53 Last Admin: 07/05/18 20:16 Dose: 0.5 mg Magnesium Hydroxide (Milk Of Magnesia) 30 ml PO HS PRN PRN Reason: Constipation Miscellaneous (Misc Oral Tab) 1 tab PO QAM [facility]; Protocol Stop: 08/30/18 11:14 Last Admin: 07/05/18 08:25 Dose: 1 tab Miscellaneous (Misc Oral Tab) 1 tab PO QPM PITER; Protocol Stop: 08/30/18 11:14 Last Admin: 07/05/18 16:26 Dose: 1 tab Multivitamins/Vitamin C (Theragran) 1 tab PO DAILY PITER Stop: 08/25/18 08:59 Last Admin: 07/05/18 08:26 Dose: 1 tab Oxybutynin Chloride (Ditropan) 5 mg PO DAILY PITER Stop: 08/25/18 08:59 Last Admin: 07/05/18 08:26 Dose: 5 mg Pantoprazole Sodium (Protonix) 40 mg PO QDAC PITER Stop: 08/25/18 07:29 Last Admin: 07/06/18 06:33 Dose: 40 mg Quetiapine Fumarate (Seroquel) 800 mg PO HS PITER; Protocol Stop: 08/25/18 20:59 Last Admin: 07/05/18 20:16 Dose: 800 mg Topiramate (Topamax) 100 mg PO BID PITER Stop: 08/25/18 08:59 Last Admin: 07/05/18 16:27 Dose: 100 mg Verapamil HCl (Calan Sr) 120 mg PO DAILY PITER Stop: 08/25/18 08:59 Last Admin: 07/05/18 08:35 Dose: 120 mg Zolpidem Tartrate (Ambien) 5 mg PO HS PRN PRN Reason: Insomnia Stop: 08/24/18 21:53 Last Admin: 07/05/18 20:16 Dose: 5 mg General: Alert, No acute distress HEENT: Atraumatic Neck: Supple Cardiovascular: Regular rate Lungs: Clear to auscultation Abdomen: Bowel sounds, Soft Extremities: Other (Left hemiparesis) Neurological: Other (Non ambulatory) Skin: Other (Warm and dry) Psych/Mental Status: Other (Confused) Assessment/Plan - Assessment Assessment: Patient is awake, alert, calm. Blood work is WNL. Dx: Increased in agitation, Schizophrenia, Seizure, left side hemiparesis, HTN. - Plan Plan: Patient is follow by psychiatry, continue with SNF meds. Will continue to monitor. Nutritional Asmnt/Malnutr-PDOC - Dietary Evaluation Malnutrition Findings (Please click <Entered> for more info): Nutritional Asmnt/Malnutrition Start: 06/26/18 10: 26 Text: Status: Complete Freq: Protocol: Document 06/29/18 18:29 LCHENG (Rec: 06/29/18 18:38 LCHENG [email or web address]) Nutritional Asmnt/Malnutrition Patient General Information Nutritional Screening Moderate Risk Diagnosis psychosis Pertinent Medical Hx/Surgical Hx CVA/TIA, dyslipidemia, encephalopathy Subjective Information Pt seen in other pt room, confused, stated he is hungry, likes pancake. Per EMR, PO intake 50-75% Current Diet Order/ Nutrition Support regular Pertinent Medications lipitor, theragran, protonix, seroquel Pertinent Labs 06/25 reviewed Nutritional Hx/Data Height 1.78 m Height (Calculated Centimeters) 177.8 Current Weight (lbs) 92.986 kg Weight (Calculated Kilograms) 93.0 Weight (Calculated Grams) 03481.4 [place] Body Weight 166 Body Mass Index (BMI) 29.4 Weight Status Overweight GI Symptoms GI Symptoms None Last BM 06/27 Difficult in: None Skin Integrity/Comment: intact Current %PO Good (75-100%) Estimated Nutritional Goals BEE in Kcals: Using Current wt Calories/Kcals/Kg 20-25 Kcals Calculated 8280-7501 Protein: Using Current wt Protein g/k.8 Protein Calculated 74 Fluid: ml 1860-2325ml (1ml/kcal) Nutritional Problem No current Nutrition Prob Problem N/A Malnutrition Alert Is there a minimum of two criteria No selected? Query Text:Check all the applicable criteria. A minimum of two criteria are recommended for diagnosis of either severe or non-severe malnutrition. Malnutrition Related to Morbid Obesity Malnutrition related to morbid obesity No Intervention/Recommendation Comments 1. Continue with regular diet as ordered. 2. Monitor PO intake, wt, labs and skin integrity 3. F/U as low risk in 7 days Expected Outcomes/Goals Expected Outcomes/Goals 1. PO intake to meet at least 75% of nutritional needs. 2. Wt stability, skin to remain intact, labs to approach WNL.
[2018-07-06] MEDS: Multivitamin Tab PO SCH (09:10)
[2018-07-06] MEDS: Verapamil HCl SR 120 mg Tab PO SCH (09:11)
[2018-07-06] MEDS: Atorvastatin Calcium 10 MG TAB PO SCH (20:46)
--- NOTE | 2018-07-07 01:51 | Progress Notes ---
DATE: 07/06/2018 PSYCHIATRIC PROGRESS NOTE SUBJECTIVE: Staff was spoken to. The patient is interviewed. Mood is noted to be irritable. Affect is constricted. The patient's aggressive behavior is a major concern. Insight and judgment are noted to be still impaired. The patient needs to be redirected. The patient has been able to calm down a little bit today compared to yesterday. No side effects to the medications are noted. Sleep and appetite are noted to be fair, but the patient's unpredictable behavior is a major concern for us to discharge the patient to a lower level of care. PLAN: To closely monitor the patient. I encouraged the patient to verbalize the concerns. If the patient's behavior is going to be good for the next 24 hours, possibly the patient is going to be [facility]. JOB# [id number]
[2018-07-07] MEDS: Pantoprazole 40 mg EC Tab PO SCH (06:44)
--- NOTE | 2018-07-07 08:47 | General Progress Note ---
Subjective - Review of Systems Service Date: 07/07/18 Subjective: I am fine Objective - Results Result Diagrams: 06/25/18 19:36 06/25/18 19:36 Recent Labs: Laboratory Last Values WBC 10.6 Th/cmm (4.8-10.8) 06/25/18 19:36 RBC 5.40 Mil/cmm (4.30-5.70) 06/25/18 19:36 Hgb 16.0 gm/dL (12-16) 06/25/18 19:36 Hct 48.3 % (41.0-60) 06/25/18 19:36 MCV 89.4 fl (80-99) 06/25/18 19:36 MCH 29.6 pg (26.0-30.0) 06/25/18 19:36 MCHC Differential 33.1 pg (28.0-36.0) 06/25/18 19:36 RDW 12.4 % (11.5-20.0) 06/25/18 19:36 Plt Count 205 Th/cmm (150-400) 06/25/18 19:36 MPV 8.4 fl 06/25/18 19:36 Neutrophils % 63.7 % (40.0-80.0) 06/25/18 19:36 Lymphocytes % 27.0 % (20.0-50.0) 06/25/18 19:36 Monocytes % 7.3 % (2.0-10.0) 06/25/18 19:36 Eosinophils % 1.7 % (0.0-5.0) 06/25/18 19:36 Basophils % 0.3 % (0.0-2.0) 06/25/18 19:36 Sodium 139 mEq/L (136-145) 06/25/18 19:36 Potassium 3.6 mEq/L (3.5-5.1) 06/25/18 19:36 Chloride 106 mEq/L (98-107) 06/25/18 19:36 Carbon Dioxide 24.8 mEq/L (21.0-31.0) 06/25/18 19:36 Anion Gap 11.8 (7.0-16.0) 06/25/18 19:36 BUN 11 mg/dL (7-25) 06/25/18 19:36 Creatinine 0.7 mg/dL (0.7-1.3) 06/25/18 19:36 Est GFR ( Amer) > 60.0 ml/min (>90) 06/25/18 19:36 Est GFR (Non-Af Amer) > 60.0 ml/min 06/25/18 19:36 BUN/Creatinine Ratio 15.7 06/25/18 19:36 Glucose 97 mg/dL (70-105) 06/25/18 19:36 Calcium 9.5 mg/dL (8.6-10.3) 06/25/18 19:36 Total Bilirubin 0.3 mg/dL (0.3-1.0) 06/25/18 19:36 AST 14 U/L (13-39) 06/25/18 19:36 ALT 17 U/L (7-52) 06/25/18 19:36 Alkaline Phosphatase 78 U/L (34-104) 06/25/18 19:36 Total Protein 7.4 gm/dL (6.0-8.3) 06/25/18 19:36 Albumin 4.6 gm/dL (4.2-5.5) 06/25/18 19:36 Globulin 2.8 gm/dL 06/25/18 19:36 Albumin/Globulin Ratio 1.6 (1.0-1.8) 06/25/18 19:36 Urine Source CLEAN C 06/25/18 19:45 Urine Color YELLOW 06/25/18 19:45 Urine Clarity CLEAR (CLEAR) 06/25/18 19:45 Urine pH 7.0 (4.6 - 8.0) 06/25/18 19:45 Ur Specific [place] 1.010 (1.005-1.030) 06/25/18 19:45 Urine Protein NEGATIVE mg/dL (NEGATIVE) 06/25/18 19:45 Urine Glucose (UA) NEGATIVE mg/dL (NEGATIVE) 06/25/18 19:45 Urine Ketones NEGATIVE mg/dL (NEGATIVE) 06/25/18 19:45 Urine Blood NEGATIVE (NEGATIVE) 06/25/18 19:45 Urine Nitrate NEGATIVE (NEGATIVE) 06/25/18 19:45 Urine Bilirubin NEGATIVE (NEGATIVE) 06/25/18 19:45 Urine Urobilinogen 0.2 E.U./dL (0.2 - 1.0) 06/25/18 19:45 Ur Leukocyte Esterase TRACE (NEGATIVE) H 06/25/18 19:45 Urine RBC NONE SEEN /hpf (0-5) 06/25/18 19:45 Urine WBC 0-2 /hpf (0-5) 06/25/18 19:45 Ur Epithelial Cells NONE SEEN /lpf (FEW) 06/25/18 19:45 Urine Bacteria FEW /hpf (NONE SEEN) 06/25/18 19:45 Urine Opiates Screen NEGATIVE (NEGATIVE) 06/25/18 19:45 Urine Methadone Screen NEGATIVE (NEGATIVE) 06/25/18 19:45 Ur Barbiturates Screen NEGATIVE (NEGATIVE) 06/25/18 19:45 Ur Tricyclics Screen POSITIVE (NEGATIVE) H 06/25/18 19:45 Ur Phencyclidine Scrn NEGATIVE (NEGATIVE) 06/25/18 19:45 Amphetamines Screen NEGATIVE (NEGATIVE) 06/25/18 19:45 U Methamphetamines Scrn NEGATIVE (NEGATIVE) 06/25/18 19:45 U Benzodiazepines Scrn NEGATIVE (NEGATIVE) 06/25/18 19:45 U Cocaine Metab Screen NEGATIVE (NEGATIVE) 06/25/18 19:45 U Cannabinoids Screen NEGATIVE (NEGATIVE) 06/25/18 19:45 Ethyl Alcohol < 10 mg/dL (0-10) 06/25/18 19:36 - Physical Exam Vitals and I&O: Vital Signs Temp 98.4 F 07/07/18 06:35 Pulse 84 07/07/18 06:35 Resp 20 07/07/18 06:35 BP 126/77 07/07/18 06:35 Pulse Ox 96 07/07/18 06:35 Intake & Output 07/06/18 07/07/18 07/07/18 18:59 06:59 18:59 Intake Total 900 120 Balance 900 120 Intake: Oral 900 120 Other: # Voids 4 3 # Bowel Movements 1 0 Active Medications: Current Medications Acetaminophen (Tylenol) 650 mg PO Q4HR PRN PRN Reason: Mild Pain / Temp above 100 Stop: 08/24/18 21:53 Last Admin: 06/28/18 05:49 Dose: 650 mg Al Hydrox/Mg Hydrox/Simethicone (Maalox) 30 ml PO Q4HR PRN PRN Reason: GI DISTRESS Stop: 08/24/18 21:53 Atorvastatin Calcium (Lipitor) 20 mg PO HS PITER Stop: 04/17/19 20:59 Last Admin: 07/06/18 20:46 Dose: 20 mg Clonazepam (Klonopin) 1 mg PO BID [facility]; Protocol Stop: 08/26/18 16:59 Last Admin: 07/06/18 16:57 Dose: 1 mg Levetiracetam (Keppra) 500 mg PO BID PITER Stop: 08/25/18 08:59 Last Admin: 07/06/18 16:57 Dose: 500 mg Magnesium Hydroxide (Milk Of Magnesia) 30 ml PO HS PRN PRN Reason: Constipation Miscellaneous (Misc Oral Tab) 1 tab PO QAM [facility]; Protocol Stop: 08/30/18 11:14 Last Admin: 07/06/18 09:11 Dose: 1 tab Miscellaneous (Misc Oral Tab) 1 tab PO QPM [facility]; Protocol Stop: 08/30/18 11:14 Last Admin: 07/06/18 16:59 Dose: 1 tab Multivitamins/Vitamin C (Theragran) 1 tab PO DAILY PITER Stop: 08/25/18 08:59 Last Admin: 07/06/18 09:10 Dose: 1 tab Oxybutynin Chloride (Ditropan) 5 mg PO DAILY PITER Stop: 08/25/18 08:59 Last Admin: 07/06/18 09:10 Dose: 5 mg Pantoprazole Sodium (Protonix) 40 mg PO QDAC PITER Stop: 08/25/18 07:29 Last Admin: 07/07/18 06:44 Dose: 40 mg Quetiapine Fumarate (Seroquel) 800 mg PO HS [facility]; Protocol Stop: 08/25/18 20:59 Last Admin: 07/06/18 20:45 Dose: 800 mg Topiramate (Topamax) 100 mg PO BID PITER Stop: 08/25/18 08:59 Last Admin: 07/06/18 16:57 Dose: 100 mg Verapamil HCl (Calan Sr) 120 mg PO DAILY PITER Stop: 08/25/18 08:59 Last Admin: 07/06/18 09:11 Dose: 120 mg Zolpidem Tartrate (Ambien) 5 mg PO HS PRN PRN Reason: Insomnia Stop: 08/24/18 21:53 Last Admin: 07/06/18 20:46 Dose: 5 mg General: Alert, No acute distress HEENT: Atraumatic Neck: Supple Cardiovascular: Regular rate Lungs: Clear to auscultation Abdomen: Bowel sounds, Soft Extremities: Other (Left hemiparesis) Neurological: Other (Non ambulatory) Skin: Other (Warm and dry) Psych/Mental Status: Other (Confused) Assessment/Plan - Assessment Assessment: Patient is awake, alert, calm. Blood work is WNL. Dx: Increased in agitation, Schizophrenia, Seizure, left side hemiparesis, HTN. - Plan Plan: Patient is follow by psychiatry, continue with SNF meds. Will continue to monitor. Nutritional Asmnt/Malnutr-PDOC - Dietary Evaluation Malnutrition Findings (Please click <Entered> for more info): Nutritional Asmnt/Malnutrition Start: 06/26/18 10: 26 Text: Status: Complete Freq: Protocol: Document 06/29/18 18:29 LCHENG (Rec: 06/29/18 18:38 [email or web address]) Nutritional Asmnt/Malnutrition Patient General Information Nutritional Screening Moderate Risk Diagnosis psychosis Pertinent Medical Hx/Surgical Hx CVA/TIA, dyslipidemia, encephalopathy Subjective Information Pt seen in other pt room, confused, stated he is hungry, likes pancake. Per EMR, PO intake 50-75% Current Diet Order/ Nutrition Support regular Pertinent Medications lipitor, theragran, protonix, seroquel Pertinent Labs 06/25 reviewed Nutritional Hx/Data Height 1.78 m Height (Calculated Centimeters) 177.8 Current Weight (lbs) 92.986 kg Weight (Calculated Kilograms) 93.0 Weight (Calculated Grams) 48146.4 [place] Body Weight 166 Body Mass Index (BMI) 29.4 Weight Status Overweight GI Symptoms GI Symptoms None Last BM 06/27 Difficult in: None Skin Integrity/Comment: intact Current %PO Good (75-100%) Estimated Nutritional Goals BEE in Kcals: Using Current wt Calories/Kcals/Kg 20-25 Kcals Calculated 3690-1488 Protein: Using Current wt Protein g/k.8 Protein Calculated 74 Fluid: ml 1860-2325ml (1ml/kcal) Nutritional Problem No current Nutrition Prob Problem N/A Malnutrition Alert Is there a minimum of two criteria No selected? Query Text:Check all the applicable criteria. A minimum of two criteria are recommended for diagnosis of either severe or non-severe malnutrition. Malnutrition Related to Morbid Obesity Malnutrition related to morbid obesity No Intervention/Recommendation Comments 1. Continue with regular diet as ordered. 2. Monitor PO intake, wt, labs and skin integrity 3. F/U as low risk in 7 days Expected Outcomes/Goals Expected Outcomes/Goals 1. PO intake to meet at least 75% of nutritional needs. 2. Wt stability, skin to remain intact, labs to approach WNL.
[2018-07-07] MEDS: Multivitamin Tab PO SCH (09:04)
--- NOTE | 2018-07-07 15:43 | Progress Notes ---
DATE: 07/07/2018 SUBJECTIVE: Staff was spoken to. The patient is interviewed. Mood is noted to be anxious. Affect is appropriate. The patient is not screaming or yelling. Today, the patient's coping skills are noted to be improving and hence it is decided to discharge the patient today for followup on outpatient basis. [facility]# [id number]
--- NOTE | 2018-07-08 08:50 | Progress Notes ---
DATE: 07/07/2018 SUBJECTIVE: The patient is seen in the timeout room. The patient appears to be calmer. Staff indicates the patient has had one verbal aggressive episode this morning. The patient seems to be able to respond to staff direction. OBJECTIVE: Mood is anxious. Affect is constricted. Thought process includes suspiciousness. The patient is guarded. The patient denied any suicidal ideation, plan, or intention. He denies any hallucinations or delusions; however, the patient still exhibits some psychosis. The patient is possibly approaching baseline. ASSESSMENT AND PLAN: The patient may be discharged today according to the staff. We have provided a remotivation and positive reinforcement for the patient to stay compliant with all aspects of his care and treatment. We encouraged the patient to demonstrate emotional and self-regulation and verbalize his concerns versus acting out. We provided coping strategies for phase of life issues as well as adjustment to his long-term care placement. No followup is indicated. The patient is most likely being discharged today. [facility]# [id number] EMMA
--- NOTE | 2018-07-10 06:25 | Discharge Summary ---
DATE OF DISCHARGE: 07/07/2018 IDENTIFYING DATA: The patient is a 52-year-old male resident of a half-way facility. JUSTIFICATION OF HOSPITALIZATION: The patient is admitted for acute agitation and aggressive behavior. DIAGNOSES AT THE TIME OF ADMISSION: AXIS I: A. Major depressive disorder with psychotic symptoms. B. Dementia, not otherwise specified. AXIS II: None. AXIS III: As per Dr. Emerson. HOSPITAL COURSE AND RESPONSE TO TREATMENT: The patient had the initial evaluation done by Dr. Emerson. HISTORY OF PRESENT ILLNESS: Please refer to the 06/26/2018 for details. HOSPITAL COURSE AND RESPONSE TO TREATMENT: The patient has been observed on inpatient unit, provided with supportive psychotherapy. The patient has been treated for his seizures and the patient has been noted to be unpredictable at times. The patient has to be redirected. The patient is wheelchair bound most of the time. Insight and judgment appeared to be impaired. Impulse control seems to be limited and the patient has been given the clonazepam almost 1 mg 2 times a day along with olanzapine 10 mg at bedtime and the patient also has to be given a dose of quetiapine up to 800 mg at bedtime. The patient is placed on BuSpar 10 mg twice a day and with these medications, the patient has been observed and monitored closely for any of these seizures. The patient started to stabilize and the patient was finally discharged 07/07 with recommendation that he is going to be seeking treatment on an outpatient basis. MENTAL STATUS EXAMINATION: At the time of discharge, the patient's mood is noted to be less irritable. Affect is appropriate. Not suicidal or homicidal. Insight and judgment are noted to be improving. Impulse control is also noted to be fair. No side effects to the medications are noted at the time of discharge. CONDITION AT THE TIME OF DISCHARGE: Noted to be stable. PROGNOSIS: At the time of discharge is noted to be guarded. JOB# [id number]
== END 2018-07-07 15:05 | DRG 885 ==
LOC: ER 18:48 → GERO 20:15
DX: F32.3 Major depressive disorder, single episode, severe with psychotic features (principal); F03.91 Unspecified dementia, unspecified severity, with behavioral disturbance; G81.94 Hemiplegia, unspecified affecting left nondominant side; F29 Unspecified psychosis not due to a substance or known physiological condition; G40.909 Epilepsy, unspecified, not intractable, without status epilepticus; I10 Essential (primary) hypertension; E78.5 Hyperlipidemia, unspecified; Z88.8 Allergy status to other drugs, medicaments and biological substances; Z86.73 Personal history of transient ischemic attack (TIA), and cerebral infarction without residual deficits
CPT/HCPCS: 36415-UA; 80053-TC; 80307; 80320-TC; 81001-TC; 83036-90; 85025-TC; 90732; G0410; J1200; J1630; J2060; J7051; Z7610